=== PATIENT | male | born 1945 | race Caucasian/White ===

== ENCOUNTER → 2021-08-27 09:52 | Outpatient (BNVA) | payer MEDICARE, OTHER, SELFPAY | PROVIDERS: PCP Internal Medicine; Visit Provider Hospitalist | DX: J44.9 Chronic obstructive pulmonary disease, unspecified (principal); R06.00 Dyspnea, unspecified | CPT/HCPCS: 99202 ==

== ENCOUNTER 2021-09-06 09:46 | Outpatient (REF) | payer MEDICARE, OTHER, SELFPAY ==
--- NOTE | 2021-09-06 12:29 | PFT_ITS ---
INDICATION: Dyspnea. SPIROMETRY: The FEV1 to FVC 76% with an FEV1 of 3.29 L, which is 98% predicted and an FVC of 4.36 L, which is 95% predicted. No significant response to bronchodilators noted. Maximum voluntary ventilation 79% predicted. LUNG VOLUMES: Total lung capacity 92% predicted with an expiratory reserve volume of 42% predicted. DIFFUSION CAPACITY: DLCO 66% predicted. COMPARISONS: None. INTERPRETATION: No obstructive nor restrictive ventilatory defects identified. No significant response to bronchodilators noted. There is a slight decrease in maximum voluntary ventilation, which could be secondary to deconditioning. Lung volumes are normal except for decrease in the expiratory reserve volume secondary to an elevated BMI. In addition to that, the patient does have a moderate diffusion impairment, which probably is due to the body habitus, although cannot rule out pulmonary vascular conditions and/or occult interstitial lung conditions. Need also to correct for hemoglobin. Clinical correlation warranted. MD MARCI Crabtree/SARAHY / [phone]
== END 2021-09-06 09:47 | disposition home or self-care (01) ==
LOC: HO.RESP 09:46
PROVIDERS: PCP Internal Medicine; Visit Provider Hospitalist
DX: R06.00 Dyspnea, unspecified (principal); J44.9 Chronic obstructive pulmonary disease, unspecified
CPT/HCPCS: 94060; 94727; 94729

== ENCOUNTER → 2021-10-30 09:58 | Outpatient (BNVA) | payer MEDICARE, OTHER, SELFPAY | PROVIDERS: PCP Internal Medicine; Visit Provider Hospitalist | DX: J44.9 Chronic obstructive pulmonary disease, unspecified (principal); R06.00 Dyspnea, unspecified | CPT/HCPCS: 99212 ==

== ENCOUNTER 2022-07-01 09:21 | Outpatient (REF) | payer MEDICARE, OTHER, SELFPAY ==
--- NOTE | ~2022-07-01 | XR_ITS ---
EXAMINATION: XR CHEST CLINICAL INFORMATION: Shortness of breath. Asthma. COMPARISON: None TECHNIQUE: 2 views of the chest were obtained. FINDINGS: No significant abnormality is noted involving the heart, lungs, mediastinum, bony thorax or soft tissues. Degenerative changes of the spine. XR/XR chest 2V IMPRESSION: No evidence for acute disease in the chest.
== END 2022-07-01 09:22 | disposition home or self-care (01) ==
LOC: HO.LAB 09:21
PROVIDERS: PCP Internal Medicine; Visit Provider Hospitalist
DX: J44.9 Chronic obstructive pulmonary disease, unspecified (principal); R06.00 Dyspnea, unspecified
CPT/HCPCS: 71046; 99212

== ENCOUNTER 2022-12-30 09:17 | Outpatient (REF) | payer MEDICARE, OTHER, SELFPAY ==
--- NOTE | ~2022-12-30 | XR_ITS ---
EXAMINATION: XR CHEST 2 VIEWS CLINICAL INFORMATION: COPD. COMPARISON: Radiographs dated 07/01/2022. TECHNIQUE: Frontal and lateral views of the chest were obtained. FINDINGS: The heart, great vessels, pulmonary vasculature and mediastinum are normal. A stable left pericardial fat pad is redemonstrated. The lungs show no focal infiltrate, effusion or pneumothorax. There is mild elevation of the right hemidiaphragm. There is no acute osseous abnormality. There is multi-level thoracic spondylosis. XR/XR chest 2V IMPRESSION: No active cardiopulmonary disease.
--- NOTE | 2022-12-30 10:15 | ECG_ITS ---
Test Reason : copd Blood Pressure : / mmHG Vent. Rate : 073 BPM Atrial Rate : 073 BPM P-R Int : 196 ms QRS Dur : 098 ms QT Int : 376 ms P-R-T Axes : -05 -58 002 degrees QTc Int : 414 ms Sinus rhythm with Premature atrial complexes Left axis deviation Abnormal ECG No previous ECGs available Referred By: Michael An Electronically Signed By:ALONSO NEGRON
== END 2022-12-30 09:18 | disposition home or self-care (01) ==
LOC: HO.XRAY 09:17
PROVIDERS: PCP Internal Medicine; Visit Provider Hospitalist
DX: J44.9 Chronic obstructive pulmonary disease, unspecified (principal); R06.00 Dyspnea, unspecified
CPT/HCPCS: 71046; 93005; 99212

== ENCOUNTER 2023-01-09 07:45 | Outpatient (REF) | payer MEDICARE, OTHER, SELFPAY ==
--- NOTE | 2023-01-09 16:07 | PFT_ITS ---
FLOWS: 1. FEV1 93% of predicted at 3.04 L. 2. FVC 91% of predicted at 4.13 L. 3. FEV1 to FVC ratio 0.74. 4. No bronchodilator response. LUNG VOLUMES: 1. Total lung capacity 84% of predicted at 6.27 L. 2. Residual volume 81% of predicted at 2.19 L. 3. Slow vital capacity 85% of predicted at 4.08 L. 4. Expiratory reserve volume 32% of predicted at 0.43 L. 5. Diffusion capacity is mildly decreased. Diffusion capacity corrects to normal after adjustment for alveolar ventilation. IMPRESSION: No obstructive or restrictive ventilatory defect. No bronchodilator response. Decreased expiratory reserve volume suggests extrathoracic restriction likely secondary to abdominal obesity. MD NATALIIA Vivas/MODL / [phone]
== END 2023-01-09 07:46 | disposition home or self-care (01) ==
LOC: HO.RESP 07:45
PROVIDERS: PCP Internal Medicine; Visit Provider Hospitalist
DX: J44.9 Chronic obstructive pulmonary disease, unspecified (principal)
CPT/HCPCS: 94060; 94727; 94729

== ENCOUNTER 2023-07-14 09:48 | Outpatient (AMB) | payer MEDICARE, OTHER, SELFPAY ==
--- NOTE | 2023-07-14 10:02 | MHC.OFFVIS ---
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 Moderate severity. Typically sometimes he developed some shortness of breath even at rest. He had been on Symbicort and also Sp[facility] with good response[facility] is no longer available. He was given a sample of Breztri. But, resulted in chest discomfort. Therefore he stopped it. Will back to the [place] he got a prescription of Wixela. However after his reaction to the previous inhaler he opted on waiting the visit to figure if he should started. Patient does describe increasing shortness of breath. Denies any chest pains. Denies any chest congestion. He did go for 6 minutes walk test in the office where he did not demonstrate any desaturation. He denies any chest pains or palpitations during the 6 minutes walk test. The patient will undergo additional testing at this time. 10/30/2021 the patient is here for a pulmonary follow-up visit. Overall the patient has been doing well. He was not able to start the Spiriva because it was no longer covered through the [place]. He has been taking Wixela twice a day. In the meantime the patient did have a chest x-ray done back in June 2021 and I personally reviewed. Appears to have some slight persistent parenchymal disease in the left base. This is minimal. This is unchanged from previous x-rays. The patient did have pulmonary function studies which were personally by me. No evidence of any obstructive nor restrictive ventilatory defects. However, the patient does have a mild diffusion impairment. The patient does try to stay busy. However, his family is concerned about his dyspnea symptoms. I reassured him explaining to him that his lung capacity good. He should continue exercising regularly. Patient also should continue with weight loss as he has been doing. Will plan to follow-up sometime in the fall with repeat chest x-ray. 07/01/2022 the patient is here for a pulmonary follow-up visit. Patient is doing well on his current therapy which includes Wixela and Spiriva. He has a rescue inhaler but does not required often. The patient did have a chest x-ray today which we personally reviewed. He does have a slight elevation of the right hemidiaphragm and some crowding on the right side. Will have him repeat his chest x-ray with the next follow-up in 6 months. In the meantime he continues using the trazodone with good effect at nighttime. He has also continued to use singular. He did recover from COVID 19 about a month ago. He is doing well. No residual symptoms noted. 07/14/2023 the patient is here for pulmonary follow-up visit. The patient continues to do fairly well from a respiratory status. He is responding well to 2 weeks along the Spiriva. In the meantime he did undergo a cardiac evaluation which was reassuring for the patient. He still continues to have the elevation in right hemidiaphragm. He started developing some right-sided right upper quadrant discomfort. Primarily worsened by certain movements. He has been upset because he had been able to chop wood for winter. He did undergo CT scan of the abdomen and pelvis. I did review the area. The lung windows appear to be stable. He has been treated for a musculoskeletal issue at this time. He is trying to stay away from the Western medicines and trying a more holistic approach. Is going to start acupuncture. I did tell about considering turmeric as an anti-inflammatory agent forthright. Otherwise is doing well from a respiratory status will follow-up in a year's time. If he develops any worsening symptoms he will call for a sooner appointment. [facility] Medical History (Updated 07/14/23 @ 10:14 by Michael An MD) Dyspnea COPD (chronic obstructive pulmonary disease) Social History (Updated 08/27/21 @ 10:23 by J CARLOS Barreto) Patient Tobacco Use Status: Never used Tobacco Review of Systems Const Denies night sweats ENT Denies change in voice, Denies lip swelling, Denies mouth pain, Reports nasal congestion, Reports nasal discharge and Denies tongue swelling Card Denies chest pain and Reports dyspnea on exertion Resp Reports cough, Reports dyspnea on exertion and Denies wheezing GI Denies abdominal pain Musc Reports arthralgias Neuro Denies Neuro-related abnormal movements Psych Denies no additional complaints Vern/Lymph Denies easy bleeding and Denies lymphadenopathy Aller/Immun Denies lip swelling, Denies tongue swelling and Denies wheezing Physical Exam Vital Signs: Last Vital Signs Pulse 79 07/14/23 10:03 BP 118/70 07/14/23 10:03 Pulse Ox 97 07/14/23 10:03 Oxygen Delivery Method Room Air 07/14/23 10:03 BMI result Body Mass Index 32.0 Const General: alert Neck Neck: Yes normal visual inspection, Yes full ROM and Yes no lymphadenopathy Chest Chest palpation & inspection: normal inspection of the chest Resp Auscultation: no rales, no rhonchi, no wheezes and diminished lung sounds Cardio Rate: regular rate Rhythm: regular rhythm Heart sounds: S1 normal heart sound present and S2 normal heart sound present GI Palpation (GI): Soft to palpation and nontender Auscultation: normal bowel sounds General: Yes no CVA tenderness Back/Spine/Pelvis Back: no CVA tenderness Skin General skin exam: rashes and/or lesions noted Results Reviewed Results Reviewed: personally reviewed [place] [facility] [place]remarkable [place] windows Assessment & Plan Assessment & Plan (1) COPD (chronic obstructive pulmonary disease): Code(s): J44.9 - Chronic obstructive pulmonary disease, unspecified Qualifiers: COPD type: chronic bronchitis Chronic bronchitis type: simple Qualified Code(s): J41.0 - Simple chronic bronchitis (2) Dyspnea: Code(s): R06.00 - Dyspnea, unspecified Qualifiers: Dyspnea type: dyspnea on exertion Qualified Code(s): R06.09 - Other forms of dyspnea Plan continue Spiriva continue Wixella KRISTI as needed F/U 12 months Coding Level of Care Code Est Pt Level 4 (18715) Diagnoses Simple chronic bronchitis J41.0 COPD type: chronic bronchitis Chronic bronchitis type: simple Dyspnea on exertion R06.09 Dyspnea type: dyspnea on exertion Time Spent (min) 17
[2023-07-14 10:03] VITALS: BP 118/70; PULSE 79; O2SAT 97; BMI 32.0
== END 2023-07-14 10:25 | disposition home or self-care (01) ==
PROVIDERS: PCP Internal Medicine; Visit Provider Hospitalist
DX: J41.0 Simple chronic bronchitis (principal); R06.09 Other forms of dyspnea
CPT/HCPCS: 99214

== ENCOUNTER → 2023-07-14 09:48 | Outpatient (BNVA) | payer MEDICARE, OTHER, SELFPAY | PROVIDERS: Visit Provider Hospitalist | DX: J41.0 Simple chronic bronchitis (principal); R06.09 Other forms of dyspnea | CPT/HCPCS: 99212 ==

== ENCOUNTER 2024-12-07 10:34 | Outpatient (AMB) | payer MEDICARE, SELFPAY ==
[2024-12-07 10:46] VITALS: BP 148/62; PULSE 71; O2SAT 99; BMI 30.6
--- NOTE | 2024-12-07 10:46 | A.OFFVIS_ITS ---
Vital Signs 12/07/24 10:46 Height 6 ft Weight 225 lb 15.581 oz BMI 30.6 BP 148/62 H Blood Pressure Location Rt brachial Position Sitting Pulse 71 Pulse Source Pulse Oximeter Pulse Oximetry (%) 99 Oxygen Delivery Method Room Air Intake Visit Reasons: COPD Allergies No Known Allergies Allergy (Verified 12/07/24 10:51) HPI Comments Details: The patient is a 79-year-old gentleman with a known history of COPD who apparently has been complaining of worsening dyspnea on exertion. Moderate severity. Typically sometimes he developed some shortness of breath even at rest. He had been on Symbicort and also Spiriva with good response. He would get those from the [place]. Unfortunately Symbicort is no longer available. He was given a sample of Breztri. But, resulted in chest discomfort. Therefore he stopped it. [place] back to the [place] he got a prescription of Wixela. However after his reaction to the previous inhaler he opted on waiting the visit to figure if he should started. Patient does describe increasing shortness of breath. Denies any chest pains. Denies any chest congestion. He did go for 6 minutes walk test in the office where he did not demonstrate any desaturation. He denies any chest pains or palpitations during the 6 minutes walk test. The patient will undergo additional testing at this time. 10/30/2021 the patient is here for a pulmonary follow-up visit. Overall the patient has been doing well. He was not able to start the Spiriva because it was no longer covered through the [place]. He has been taking Wixela twice a day. In the meantime the patient did have a chest x-ray done back in June 2021 and I personally reviewed. Appears to have some slight persistent parenchymal disease in the left base. This is minimal. This is unchanged from previous x- rays. The patient did have pulmonary function studies which were personally by me. No evidence of any obstructive nor restrictive ventilatory defects. However, the patient does have a mild diffusion impairment. The patient does try to stay busy. However, his family is concerned about his dyspnea symptoms. I reassured him explaining to him that his lung capacity good. He should continue exercising regularly. Patient also should continue with weight loss as he has been doing. Will plan to follow-up sometime in the fall with repeat chest x-ray. 07/01/2022 the patient is here for a pulmonary follow-up visit. Patient is doing well on his current therapy which includes Wixela and Spiriva. He has a rescue inhaler but does not required often. The patient did have a chest x-ray today which we personally reviewed. He does have a slight elevation of the right hemidiaphragm and some crowding on the right side. Will have him repeat his chest x-ray with the next follow-up in 6 months. In the meantime he continues using the trazodone with good effect at nighttime. He has also continued to use singular. He did recover from COVID 19 about a month ago. He is doing well. No residual symptoms noted. 07/14/2023 the patient is here for pulmonary follow-up visit. The patient continues to do fairly well from a respiratory status. He is responding well to 2 weeks along the Spiriva. In the meantime he did undergo a cardiac evaluation which was reassuring for the patient. He still continues to have the elevation in right hemidiaphragm. He started developing some right-sided right upper quadrant discomfort. Primarily worsened by certain movements. He has been upset because he had been able to chop wood for winter. He did undergo CT scan of the abdomen and pelvis. I did review the area. The lung windows appear to be stable. He has been treated for a musculoskeletal issue at this time. He is trying to stay away from the Western medicines and trying a more holistic approach. Is going to start acupuncture. I did tell about considering turmeric as an anti-inflammatory agent forthright. Otherwise is doing well from a respiratory status will follow-up in a year's time. If he develops any worsening symptoms he will call for a sooner appointment. 12/07/2024 the patient is here for a pulmonary follow-up visit. The patient has been shortness breath. He was short of breath over the fall and did require a course of prednisone. [facility] has not been able to get all the medications. Today she will be receiving his Wixela Spiriva and hopefully also the albuterol for his nebulizer also request from the [place] pharmacy. Meantime he does have some diminished breath sounds no significant wheezing but does have prolonged expiratory phase. We did go for brief walking oximetry his oxygen was excellent. Did have a cardiac workup which is also reassuring including a cardiac stress test prior report of the patient. He was told that he is okay. Again I do not have those reports myself. In the meantime will have him get an x-ray to try to find an explanation for his dyspnea symptoms. If it is abnormal will consider getting a CT scan. Otherwise patient continues to work on his weight loss which is been going well. Will get him optimized with respiratory medications and will plan to have him come back in 3 months PFTs. [facility] Medical History (Updated 07/14/23 @ 10:14 by Michael An MD) Dyspnea COPD (chronic obstructive pulmonary disease) Social History Patient Tobacco Use Status: Never used Tobacco Review of Systems Const Denies night sweats ENT Denies change in voice, Denies lip swelling, Denies mouth pain, Reports nasal congestion, Reports nasal discharge and Denies tongue swelling Card Denies chest pain and Reports dyspnea on exertion Resp Reports cough, Reports dyspnea on exertion and Denies wheezing GI Denies abdominal pain Musc Reports arthralgias Neuro Denies Neuro-related abnormal movements Psych Denies no additional complaints Vern/Lymph Denies easy bleeding and Denies lymphadenopathy Aller/Immun Denies lip swelling, Denies tongue swelling and Denies wheezing Physical Exam Vital Signs: Last Vital Signs Pulse 71 12/07/24 10:46 BP 148/62 H 12/07/24 10:46 Pulse Ox 99 12/07/24 10:46 Oxygen Delivery Method Room Air 12/07/24 10:46 BMI result Body Mass Index 30.6 Const General: alert Neck Neck: Yes normal visual inspection, Yes full ROM and Yes no lymphadenopathy Chest Chest palpation & inspection: normal inspection of the chest Resp Auscultation: no rales, no rhonchi, no wheezes and diminished lung sounds Cardio Rate: regular rate Rhythm: regular rhythm Heart sounds: S1 normal heart sound present and S2 normal heart sound present GI Palpation (GI): Soft to palpation and nontender Auscultation: normal bowel sounds General: Yes no CVA tenderness Back/Spine/Pelvis Back: no CVA tenderness Skin General skin exam: rashes and/or lesions noted Assessment & Plan Assessment & Plan (1) COPD (chronic obstructive pulmonary disease): Code(s): J44.9 - Chronic obstructive pulmonary disease, unspecified Category: Medical Qualifiers: COPD type: chronic bronchitis Chronic bronchitis type: simple Qualified Code(s): J41.0 - Simple chronic bronchitis (2) Dyspnea: Code(s): R06.00 - Dyspnea, unspecified Category: Medical Qualifiers: Dyspnea type: dyspnea on exertion Qualified Code(s): R06.09 - Other forms of dyspnea Plan continue Spiriva continue Wixella KRISTI as needed CXR PFTs prednisone taper Would benefit from pulmonary rehab F/U 3 months Orders: Orders PFT pulmonary function test Today J41.0 - Simple chronic bronchitis XR chest 2V Today R06.09 - Other forms of dyspnea Medications: New albuterol sulfate 2.5 mg (3 mL) inhalation QID 1,080 mL 3RF 90 days prednisone PO daily; Take 2 tabs daily x 5 days, then 1 tablet daily x 5 days 15 tabs 0RF 10 days tiotropium bromide 2.5 mcg/actuation (Spiriva Respimat) 2 puffs inhalation DAILY 3 ea 3RF 90 days Changed From montelukast 10 mg PO DAILY To montelukast 10 mg PO DAILY 90 tabs 3RF 90 days From fluticasone propion-salmeterol 500-50 mcg/dose (Wixela Inhub) 1 inh inhalation BID To fluticasone propion-salmeterol 500-50 mcg/dose (Wixela Inhub) 1 inh inhalation BID 3 ea 3RF 90 days Coding Level of Care Code Est Pt Level 4 (09075) Complex EM visit Add On G2211 Diagnoses Simple chronic bronchitis J41.0 COPD type: chronic bronchitis Chronic bronchitis type: simple Dyspnea on exertion R06.09 Dyspnea type: dyspnea on exertion Time Spent (min) 17
--- OUTSIDE RECORDS SUMMARY | 2024-12-07 12:20 | XMS_ITS | Clinical Summary ---
Author Organization [facility] Address [address] [place] [address] Phone Care Team Providers Care Tobacco Stemmer Machine Name Role Phone Tj Torres MD Primary Care Provider [phone] Allergies No known active allergies Medications omeprazole (PRILOSEC) 20 mg tablet,delayed release (DR/EC) Take 1 tablet (20 mg total) by mouth. 4 Active albuterol HFA (PROAIR HFA ; PROVENTIL HFA ; VENTOLIN HFA) 90 mcg/actuation inhaler Inhale 2 puffs by mouth every 4 (four) hours if needed. Active celecoxib (CeleBREX) 200 mg capsule Take 1 capsule (200 mg total) by mouth. 4 Active montelukast (SINGULAIR) 10 mg tablet Take 1 tablet (10 mg total) by mouth. 4 Active sertraline (ZOLOFT) 100 mg tablet Take 2 tablets (200 mg total) by mouth 1 (one) time each day in the morning. 4 Active simvastatin (ZOCOR) 40 mg tablet Take 1 tablet (40 mg total) by mouth. Active tiotropium (SPIRIVA) 18 mcg per inhalation capsule Place 1 capsule (18 mcg total) into inhaler and inhale. Active traZODone (DESYREL) 100 mg tablet Take 1 tablet (100 mg total) by mouth. 4 Active valsartan (DIOVAN) 80 mg tablet Take 1 tablet (80 mg total) by mouth 1 (one) time each day. 01/23/202 4 Active fluticasone propion-salmete roL (ADVAIR DISKUS) 100-50 mcg/dose diskus inhaler Inhale 1 puff by mouth 2 (two) times a day. Rinse mouth with water after use to reduce aftertaste and incidence of candidiasis. Do not swallow. Active Encounters Date Type Department Care Team Description 09/15/2024 Telephone Gastroenterology - [address] [phone] Jolie Stubbs [place] 09/14/2024 8:35 AM EST Anesthesia Event [facility] Endoscopy [address] [place] [phone] Milan Delgado MD 09/14/2024 7:45 AM EST - 09/14/2024 11:59 PM EST Hospital Encounter [facility] Endoscopy [address] [place] [phone] Yanni Qiu MD Chang, Daniel J, MD Personal history of colon polyps, unspecified; Family history of colonic polyps; Family history of malignant neoplasm of digestive organs Discharge Disposition: Home or Self Care from Last 3 Months Surgical History Surgery Date Site/Laterality Comments BLADDER SURGERY PROCEDURE:BLADDER SURGERY SHOULDER SURGERY PROCEDURE:SHOULDER SURGERY;COMMENT:right and left shoulder KNEE SURGERY PROCEDURE:KNEE SURGERY;COMMENT:right HERNIA REPAIR PROCEDURE:HERNIA REPAIR BASAL CELL CARCINOMA EXCISION Medical History Medical History Date Comments Asthma DX:Asthma COPD (chronic obstructive pu lmonary disease) ([facility]) DX:COPD (chronic obstructive pulmonary disease) ([facility]) Hypertension DX:Hypertension Drug ingestion DX:Drug ingestio n Cancer ([facility]) DX:Cancer ([facility]) ;COMMENT:bladder Depression GERD (gastroesophageal reflux disease) Family History Medical History Relation Name Comments Hypertension Brother Cancer Father Cancer Mother Rheumatologic disease Sister Relation Name Status Comments Brother Father Mother Sister Social History Tobacco Use Types Packs/Day Years Used Date Smoking Tobacco: Never Smokeless Tobacco: Never Tobacco Cessation:Counseling Given: Not Answered Alcohol Use Standard Drinks/Week Comments No 0 (1 standard drink = 0.6 oz pur e alcohol) Interpersonal Safety Answer Date Record ed Physical Abuse 09/14/2024 Verbal Abuse 09/14/2024 Sex and Gender Information Value Date Recorded Sex Assigned at Not on file Legal Sex Male 10:22 PM EST Gender Identity Not on file Sexual Orientation Not on file Obstetrics History Last Filed Vital Signs Vital Sign Reading Time Taken Comments Blood Pressure 114/75 09/14/2024 9:29 AM EST Pulse 83 09/14/2024 9:29 AM EST Temperature 35.6 ??C (96.1 ??F) 09/14/2024 9:06 AM ES T Respiratory Rate 16 09/14/2024 9:29 AM EST Oxygen Saturation 100% 09/14/2024 9:29 AM EST Inhaled Oxygen Concentration - - Weight 102 kg (224 lb) 09/14/2024 8:33 AM EST Height 182.9 cm (6') 09/14/2024 8:33 AM EST Body Mass Index 30.38 09/14/2024 8:33 AM EST Plan of Treatment Health Maintenance Due Date Last Done Comments Hepatitis A Vaccines (1 of 2 - Risk 2-dose series) 1965 Cholesterol Screening (Lipid Panel) 08/10/2024 Depression Screening 08/10/2024 Hepatitis C Screening 08/10/2024 Hypertension/CHF/CAD Annual BMP Blood Test 08/10/2024 Medicare Annual Wellness Visit 08/10/2024 Social Influencers of Health Screening 08/10/2024 Falls Risk Assessment 09/14/2025 09/14/2024 DTaP,Tdap,and Td Vaccines (4 - Td or Tdap) 10/15/2027 10/15/2017, 10/15/2017, 10/12/2007 Zoster Vaccines Completed 07/09/2020, 09/26, 05/17/2012 Pneumococcal Vaccine: 50+ Years Completed 01/12/2023, 10/04/2015, 05/17/2012, Additional history exists COVID-19 Vaccine Completed 07/18/2024, 03/2023, 10/02/2022, Additional history exists Influenza Vaccine Completed 07/18/2024, , 07/09/2022, Additional history exists RSV Immunization Patients 60+ Years Old Completed 09/09/2024 Colorectal Cancer Screening: Colonoscopy Discontinued 09/14/2024 HIB Vaccines Aged Out No longer eligi ble based on patient's age to complete this topic HPV Vaccines Aged Out No longer eligi ble based on patient's age to complete this topic Hepatitis B Vaccines Aged Out No long er eligible based on patient's age to complete this topic IPV Vaccines Aged Out No longer eligi ble based on patient's age to complete this topic MMR Vaccines Aged Out No longer eligi ble based on patient's age to complete this topic Meningococcal ACWY Vaccine Aged Out N o longer eligible based on patient's age to complete this topic RSV Immunization Patients Under 20 months Aged Out No longer eligible based on patient's age to complete this topic Varicella Vaccines Aged Out No longer eligible based on patient's age to complete this topic Procedures Procedure Name Priority Date/Time Associated Diagnosis Comments COLONOSCOPY Routine 09/14/2024 9:05 AM EST Personal history of colon polyps, unspecified Family history of colonic polyps Family history of malignant neoplasm of digestive organs TISSUE EXAM Routine 09/14/2024 8:55 AM EST Personal history of colon polyps, unspecified Family history of colonic polyps Family history of malignant neoplasm of digestive organs from Last 3 Months Results * COLONOSCOPY Anesthesia - MAC; [facility] ENDOSCOPY (09/14/2024 9:05 AM EST) Anatomical Region Laterality Modality Endoscopy 09/14/2024 8:30 AM EST Impressions 09/14/2024 9:07 AM EST - The examined portion of the ileum was normal. ? - One 3 mm polyp in the ascending colon, removed with ? a cold snare. Resected and retrieved. ? - One 2 mm polyp in the transverse colon, removed with ? a cold snare. Resected and retrieved. ? - One 2 mm polyp in the descending colon, removed with ? a cold snare. Resected and retrieved. ? - Diverticulosis in the sigmoid colon. ? - Internal hemorrhoids. Recommendation: ?- Await pathology results. ? - Repeat colonoscopy for surveillance based on ? pathology results. Narrative 09/14/2024 9:07 AM EST [facility] GI Patient Name: Yassine Sharpe Procedure Date: 09/14/2024 8:30 AM Date of : 1945 Age: 78 Gender: Male Note Status: Finalized Attending MD: Yanni Qiu MD, Procedure Date No Time: 09/14/2024 Procedure: ? Colonoscopy Indications: ? High risk colon cancer surveillance: Personal history ? of colonic polyps Providers: ? Yanni Qiu MD Referring MD: ?Tj Torres MD Medicines: ? Propofol per Anesthesia Complications: ? No immediate complications. Estimated Blood Loss: ? Estimated blood loss: none. Procedure: ? Pre-Anesthesia Assessment: ? - ASA Grade Assessment: III - A patient with severe ? systemic disease. ? After I obtained informed consent, the scope was ? passed under direct vision. Throughout the procedure, ? the patient's blood pressure, pulse, and oxygen ? saturations were monitored continuously.The ? Colonoscope was introduced through the anus and ? advanced to the terminal ileum. The colonoscopy was ? performed without difficulty. The patient tolerated ? the procedure well. The quality of the bowel ? preparation was good. Findings: ?The perianal and digital rectal examinations were ? normal. ? The terminal ileum appeared normal. ? A 3 mm polyp was found in the ascending colon. The ? polyp was sessile. The polyp was removed with a cold ? snare. Resection and retrieval were complete. ? A 2 mm polyp was found in the transverse colon. The ? polyp was sessile. The polyp was removed with a cold ? snare. Resection and retrieval were complete. ? A 2 mm polyp was found in the descending colon. The ? polyp was sessile. The polyp was removed with a cold ? snare. Resection and retrieval were complete. ? Multiple medium-mouthed diverticula were found in the ? sigmoid colon. ? Internal hemorrhoids were found during retroflexion. ? The hemorrhoids were Grade I (internal hemorrhoids ? that do not prolapse). Procedure Code(s): ? --- Professional --- ? 29005, Colonoscopy, flexible; with removal of ? tumor(s), polyp(s), or other lesion(s) by snare ? technique Diagnosis Code(s): ? --- Professional --- ? Z86.010, Personal history of colonic polyps ? D12.2, Benign neoplasm of ascending colon ? D12.3, Benign neoplasm of transverse colon (hepatic ? flexure or splenic flexure) ? D12.4, Benign neoplasm of descending colon CPT copyright 2020 [employer]. All rights reserved. The codes documented in this report are preliminary and upon parachute harness rigger review may be revised to meet current compliance requirements. Yanni Qiu MD 09/14/2024 9:07:18 AM This report has been signed electronically.Yanni Qiu MD Number of Addenda: 0 Note Initiated On: 09/14/2024 8:30 AM Scope In: Scope Out: ? Endoscopy Department at [facility] - [address] [place] [address], ? [place] [address] Procedure Note Yanni Qiu MD - 09/14/2024 [facility] GI Patient Name: Yassine Sharpe Procedure Date: 09/14/2024 8:30 AM Date of : 1945 Age: 78 Gender: Male Note Status: Finalized Attending MD: Yanni Qiu MD, Procedure Date No Time: 09/14/2024 Procedure: Colonoscopy Indications: High risk colon cancer surveillance: Personalhistory of colonic polyps Providers: Yanni Qiu MD Referring MD: Tj Torres MD Medicines: Propofol per Anesthesia Complications: No immediate complications. Estimated Blood Loss: Estimated blood loss: none. Procedure: Pre-Anesthesia Assessment: - ASA Grade Assessment: III - A patient with severe systemic disease. After I obtained informed consent, the scope was passed under direct vision. Throughout theprocedure, the patient's blood pressure, pulse, and oxygen saturations were monitored continuously.The Colonoscope was introduced through the anus and advanced to the terminal ileum. The colonoscopy was performed without difficulty. The patient tolerated the procedure well. The quality of the bowel preparation was good. Findings: The perianal and digital rectal examinations were normal. The terminal ileum appeared normal. A 3 mm polyp was found in the ascending colon. The polyp was sessile. The polyp was removed with acold snare. Resection and retrieval were complete. A 2 mm polyp was found in the transverse colon. The polyp was sessile. The polyp was removed with acold snare. Resection and retrieval were complete. A 2 mm polyp was found in the descending colon. The polyp was sessile. The polyp was removed with acold snare. Resection and retrieval were complete. Multiple medium-mouthed diverticula were found inthe sigmoid colon. Internal hemorrhoids were found duringretroflexion. The hemorrhoids were Grade I (internal hemorrhoids that do not prolapse). Procedure Code(s): --- Professional --- 51734, Colonoscopy, flexible; with removal of tumor(s), polyp(s), or other lesion(s) by snare technique Diagnosis Code(s): --- Professional --- Z86.010, Personal history of colonic polyps D12.2, Benign neoplasm of ascending colon D12.3, Benign neoplasm of transverse colon (hepatic flexure or splenic flexure) D12.4, Benign neoplasm of descending colon CPT copyright 2020 [employer]. All rights reserved. The codes documented in this report are preliminary and upon parachute harness rigger reviewmay be revised to meet current compliance requirements. Yanni Qiu MD 09/14/2024 9:07:18 AM This report has been signed electronically.Yanni Qiu MD Number of Addenda: 0 Note Initiated On: 09/14/2024 8:30 AM Scope In: Scope Out: Endoscopy Department at [facility] - [address] [place] [id number] IMPRESSION: - The examined portion of the ileum was normal. - One 3 mm polyp in the ascending colon, removedwith a cold snare. Resected and retrieved. - One 2 mm polyp in the transverse colon, removedwith a cold snare. Resected and retrieved. - One 2 mm polyp in the descending colon, removedwith a cold snare. Resected and retrieved. - Diverticulosis in the sigmoid colon. - Internal hemorrhoids. Recommendation: - Await pathology results. - Repeat colonoscopy for surveillance based on pathology results. Yanni Qiu MD GI~PROCEDURE ORDERABLES Final Result * Tissue exam (09/14/2024 8:55 AM EST) Final Diagnosis A. Large Intestine, Right/Ascending Colon, polyp: - No colonic tissue present for evaluation. B. Large Intestine, Transverse Colon, polyp: - Tubular adenoma. C. Large Intestine, Left/Descending Colon, polyp: - No colonic tissue present for evaluation. 09/15/2024 9:24 AM EST [facility] Gross Description A. Large Intestine, Right/Ascending Colon, POLYP: Labeled asce colon polyp . Received in formalin is a 1.3 x 1.0 x 0.1 cm aggregate of fecal/food debris. The specimen is wrapped in paper and submitted in toto in one cassette, multiple pieces, multiple levels. Please note: No tissue was received in the specimen jar. Specimen may not survive processing. B. Large Intestine, Transverse Colon, POLYP: Labeled trans colon polyp . Received in formalin, are four irregular soft, alexander tissue fragments, approximately ranging from 0 .1 cm to 0.2 cm in greatest diameters, admixed with fecal/food debris, which are wrapped in paper and submitted in toto in one cassette, four pieces, multiple levels. C. Large Intestine, Left/Descending Colon, POLYP: Labeled desc colon polyp . Received in formalin is a 0.2 cm aggregate of fecal/food debris. The specimen is wrapped in paper and submitted in toto in one cassette, multiple pieces, multiple levels. Please note: No tissue was received in the specimen jar. Specimen may not survive processing. dvb/SL 09/15/2024 9:24 AM EST [facility] Disclaimer Unless otherwise specified, all tissue is 10% NB formalin fixed and paraffin embedded. 09/15/2024 9:24 AM EST [facility] Tissue Ascending colon structure / Unknown 09/14/2024 8:55 AM EST 09/14/2024 10:55 AM EST Tissue specimen (specimen) Transverse colon structure / Unknown 09/14/2024 8:57 AM EST 09/14/2024 10:56 AM EST Tissue specimen (specimen) Descending colon structure / Unknown 09/14/2024 9:01 AM EST 09/14/2024 10:56 AM EST us Yanni Qiu MD LAB PATHOLOGY ORDERABLES Final Result [facility] [address] [place] [address], [place] [phone] from Last 3 Months Insurance MEDICARE [facility] Care Teams Tobacco Stemmer Machine Relationship Specialty Start Date End Date Tj Torres MD [address] [place] [address] PCP - General Internal Medicine 09/12/24
--- OUTSIDE RECORDS SUMMARY | 2024-12-07 12:20 | XMS_ITS | Clinical Summary ---
Author Organization [facility] Address [address] [place] [address] Care Team Providers Care Bookkeeper Name Role Phone Sathya Herzog MD Primary Care Provider [phone] Allergies No known active allergies Medications Medication Sig Dispensed Refills Start Date End Date Status albuterol (PROVENTIL HFA;VENTOLIN HFA) 108 (90 Base) MCG/ACT inhaler Inhale 2 puffs into the lungs. 0 Active aspirin 81 MG EC tablet Take by mouth. 0 Active budesonide-formoterol (SYMBICORT) 160-4.5 MCG/ACT inhaler Inhale 2 puffs into the lungs. 0 Active ipratropium-albuterol (DUO-NEB) 0.5-2.5 mg/mL nebulizer Inhale 3 mL into the lungs. 0 Active montelukast (SINGULAIR) 10 MG tablet Take 10 mg by mouth. 0 Active sertraline (ZOLOFT) 100 MG tablet Take 100 mg by mouth. 0 Active tiotropium (SPIRIVA) [address] 18 mcg into inhaler and inhale. 0 Active valsartan (DIOVAN) tablet 80 mg Take 80 mg by mouth. 0 Active simvastatin (ZOCOR) tablet 40 mg Take 40 mg by mouth. 0 Active traZODone (DESYREL) 100 MG tablet Take 100 mg by mouth every night at bedtime. 0 Active meloxicam (MOBIC) 7.5 MG tablet TAKE 1 TABLET(7.5 MG) BY MOUTH DAILY 30 tablet 0 01/19/2020 Active Active Problems Problem Noted Date Diagnosed Date Chronic pain of left knee 03/11/2018 Arthritis of knee, right 03/11/2018 Family History Medical History Relation Name Comments Hypertension Brother Cancer Father Cancer Mother Rheumatologic disease Sister Relation Name Status Comments Brother Father Mother Sister Social History Tobacco Use Types Packs/Day Years Used Date Smoking Tobacco: Former Cigars Q uit: 1970 Smokeless Tobacco: Never Alcohol Use Standard Drinks/Week Comments No 0 (1 standard drink = 0.6 oz pur e alcohol) Sex and Gender Information Value Date Recorded Sex Assigned at Not on file Gender Identity Not on file Sexual Orientation Not on file Last Filed Vital Signs Vital Sign Reading Time Taken Comments Blood Pressure - - Pulse - - Temperature - - Respiratory Rate - - Oxygen Saturation - - Inhaled Oxygen Concentration - - Weight 107 kg (236 lb) 01/17/2020 1:29 PM EDT Height 182.9 cm (6') 01/17/2020 1:29 PM EDT Body Mass Index 32.01 01/17/2020 1:29 PM EDT Plan of Treatment Health Maintenance Due Date Last Done Comments Hepatitis C Screening 1945 COVID-19 Vaccine (#1) 04/06/1946 Depression Screening 1958 BMI Counseling 1964 Preventative Health Evaluation 1964 DTap / Tdap / Td (1 - Tdap) 1965 Shingrix-Zoster Vaccine (1 of 2) 1996 Fall Risk Assessment 2011 Pneumococcal Vaccine (1 of 1 - PCV) 2011 RSV Adult > 60+ Yrs or Pregn ant (1 - 1-dose 75+ series) 2021 Influenza Vaccine (#1) 2024 09/23/2018 Hepatitis B Vaccines Aged Out No long er eligible based on patient's age to complete this topic RSV Ped < 20 months Aged Out No longe r eligible based on patient's age to complete this topic Care Teams Bookkeeper Relationship Specialty Start Date End Date Sathya Herzog MD [address] [address] PCP - General Internal Medicine 11/29/19
== END 2024-12-07 11:15 | disposition home or self-care (01) ==
PROVIDERS: PCP Internal Medicine; Visit Provider Hospitalist
DX: J41.0 Simple chronic bronchitis (principal); R06.09 Other forms of dyspnea
CPT/HCPCS: 99214; G2211

== ENCOUNTER 2024-12-07 10:34 | Outpatient (REF) | payer MEDICARE, OTHER, SELFPAY ==
--- NOTE | ~2024-12-07 | XR_ITS ---
EXAMINATION: XR CHEST CLINICAL INFORMATION: R06.09 - Other forms of dyspnea COMPARISON: 12/30/2022. TECHNIQUE: 2 views of the chest were obtained. FINDINGS: The cardiac, hilar, and mediastinal contours are normal. The lungs are clear bilaterally. There is no pneumothorax or pleural effusion. There is no focal osseous or soft tissue abnormality. There are mild degenerative changes of the spine. XR/XR chest 2V IMPRESSION: No active pulmonary disease. Electronically signed by: Ronal Mello MD 12/07/2024 12:34 PM [facility]
--- OUTSIDE RECORDS SUMMARY | 2024-12-07 13:16 | XMS_ITS | Clinical Summary ---
Author Organization [facility] Address [address] [place] [address] Care Team Providers Care Library Media Specialist Name Role Phone Sathya Herzog MD Primary Care Provider [phone] Allergies No known active allergies Medications Medication [...] age to complete this topic Care Teams Library Media Specialist Relationship Specialty Start Date End Date Sathya Herzog MD [address] [address] PCP - General Internal Medicine 11/29/19
--- OUTSIDE RECORDS SUMMARY | 2024-12-07 13:16 | XMS_ITS | Clinical Summary ---
Author Organization [facility] Address [address] [place] [address] Phone Care Team Providers Care Carpet Loom Fixer Name Role Phone Tj Torres MD Primary Care Provider [phone] Allergies No known active allergies Medications omeprazole [...] 09/15/2024 Telephone Gastroenterology - [address] [phone] Jolie Stubbs [place] 09/14/2024 8:35 AM EST Anesthesia Event [facility] Endoscopy [address] [place] [phone] Milan Delgado MD 09/14/2024 7:45 AM EST - 09/14/2024 11:59 PM EST Hospital Encounter [facility] Endoscopy [address] [place] [phone] Yanni Qiu MD Chang, Daniel J, MD [...] DX:Asthma COPD (chronic obstructive pu lmonary disease) ([facility]) DX:COPD (chronic obstructive pulmonary disease) ([facility]) Hypertension DX:Hypertension Drug ingestion DX:Drug ingestio n Cancer ([facility]) DX:Cancer ([facility]) ;COMMENT:bladder Depression GERD (gastroesophageal reflux disease) Family [...] patient's age to complete this topic Meningococcal B Vacine Aged Out No lo nger eligible based on patient's age to complete [...] Months Results * COLONOSCOPY Anesthesia - MAC; [facility] ENDOSCOPY (09/14/2024 9:05 AM EST) Anatomical Region [...] pathology results. Narrative 09/14/2024 9:07 AM EST [facility] GI Patient Name: Yassine Sharpe Procedure [...] Procedure Code(s): ? --- Professional --- ? 00360, Colonoscopy, flexible; with removal of ? tumor(s), polyp(s), or other lesion(s) by snare ? technique Diagnosis Code(s): ? --- Professional --- ? Z86.010, Personal history of colonic polyps ? D12.2, Benign neoplasm of ascending colon ? D12.3, Benign neoplasm of transverse colon (hepatic ? flexure or splenic flexure) ? D12.4, Benign neoplasm of descending colon CPT copyright 2020 [employer]. All rights reserved. The codes documented in this report are preliminary and upon physicians and surgeons review may be revised to meet current compliance requirements. Yanni Qiu MD 09/14/2024 9:07:18 AM This report has been signed electronically.Yanni Qiu MD Number of Addenda: 0 Note Initiated On: 09/14/2024 8:30 AM Scope In: Scope Out: ? Endoscopy Department at [facility] - [address] [place] [address], ? [place] [address] Procedure Note Yanni Qiu MD - 09/14/2024 [facility] GI Patient Name: Yassine Sharpe Procedure [...] not prolapse). Procedure Code(s): --- Professional --- 42832, Colonoscopy, flexible; with removal of tumor(s), polyp(s), or other lesion(s) by snare technique Diagnosis Code(s): --- Professional --- Z86.010, Personal history of colonic polyps D12.2, Benign neoplasm of ascending colon D12.3, Benign neoplasm of transverse colon (hepatic flexure or splenic flexure) D12.4, Benign neoplasm of descending colon CPT copyright 2020 [employer]. All rights reserved. The codes documented in this report are preliminary and upon physicians and surgeons reviewmay be revised to meet current compliance requirements. Yanni Qiu MD 09/14/2024 9:07:18 AM This report has been signed electronically.Yanni Qiu MD Number of Addenda: 0 Note Initiated On: 09/14/2024 8:30 AM Scope In: Scope Out: Endoscopy Department at [address] [address] IMPRESSION: - The examined portion of the [...] tissue present for evaluation. 09/15/2024 9:24 AM [facility] Gross Description A. [...] not survive processing. dvb/SL 09/15/2024 9:24 AM [facility] Disclaimer Unless otherwise specified, all tissue is 10% NB formalin fixed and paraffin embedded. 09/15/2024 9:24 AM [facility] Tissue Ascending colon structure / Unknown 09/14/2024 8:55 AM EST 09/14/2024 10:55 AM EST Tissue specimen (specimen) Transverse colon structure / Unknown 09/14/2024 8:57 AM EST 09/14/2024 10:56 AM EST Tissue specimen (specimen) Descending colon structure / Unknown 09/14/2024 9:01 AM EST 09/14/2024 10:56 AM EST Yanni Qiu MD LAB PATHOLOGY ORDERABLES Final Result [facility] [address] [place] [address], from Last 3 Months Insurance MEDICARE [facility] Care Teams Carpet Loom Fixer Relationship Specialty Start Date End Date Tj Torres MD [place] [address] PCP - General Internal Medicine 09/12/24
== END 2024-12-07 10:35 | disposition home or self-care (01) ==
LOC: HO.XRAY 10:34
PROVIDERS: PCP Internal Medicine; Visit Provider Hospitalist
DX: J41.0 Simple chronic bronchitis (principal); R06.09 Other forms of dyspnea
CPT/HCPCS: 71046; 99212

== ENCOUNTER → 2024-12-07 11:24 | Outpatient (BNV) | payer MEDICARE, SELFPAY | PROVIDERS: PCP Internal Medicine; Visit Provider Radiology Diagnostic Radiology | DX: R06.09 Other forms of dyspnea (principal) | CPT/HCPCS: 71046 ==

== ENCOUNTER 2025-01-12 07:47 | Outpatient (REF) | payer MEDICARE, OTHER, SELFPAY ==
--- NOTE | 2025-01-12 07:50 | PFT_ITS ---
Flows: FEV1: 108 % of predicted at 3.26 L FVC: 111 % of predicted at 4.54 L FEV1/FVC: 72 % Bronchodilator response: Present in small to medium airways only Volumes: Total lung capacity: 94 % of predicted at 6.88 L Residual volume: 80 % of predicted at 2.29 L Slow vital capacity: 108 % of predicted at 4.59 L Expiratory reserve volume: 62 % of predicted at 0.80 L Diffusion capacity: No Impression: Mild reversible obstructive ventilatory defect with bronchodilator response present in small to medium airways only. MTDD
--- OUTSIDE RECORDS SUMMARY | 2025-01-12 07:50 | XMS_ITS | Clinical Summary ---
Author Organization [facility] Address [address] [place] [address] Care Team Providers Care Floor Worker Well Service Name Role Phone Sathya Herzog MD Primary Care Provider [phone] Allergies No known active allergies Medications Medication [...] age to complete this topic Care Teams Floor Worker Well Service Relationship Specialty Start Date End Date Sathya Herzog MD [address] [address] PCP - General Internal Medicine 11/29/19
--- OUTSIDE RECORDS SUMMARY | 2025-01-12 07:50 | XMS_ITS | Clinical Summary ---
Author Organization [facility] Address [address] [place] [address] Phone Care Team Providers Care Banquet Kitchen Supervisor Name Role Phone Tj Torres MD Primary Care Provider [phone] Allergies No known active allergies Medications omeprazole [...] incidence of candidiasis. Do not swallow. Active Surgical History Surgery Date Site/Laterality Comments BLADDER SURGERY PROCEDURE:BLADDER SURGERY SHOULDER SURGERY PROCEDURE:SHOULDER SURGERY;COMMENT:right and left shoulder KNEE SURGERY PROCEDURE:KNEE SURGERY;COMMENT:right HERNIA REPAIR PROCEDURE:HERNIA REPAIR BASAL CELL CARCINOMA EXCISION Medical History Medical History Date Comments Asthma DX:Asthma COPD (chronic obstructive pu lmonary disease) ([facility]) DX:COPD (chronic obstructive pulmonary disease) ([facility]) Hypertension DX:Hypertension Drug ingestion DX:Drug ingestio n Cancer ([facility]) DX:Cancer ([facility]) ;COMMENT:bladder Depression GERD (gastroesophageal reflux disease) Family [...] of digestive organs from Last 3 Months or Most Recently Relevant to Health Maintenance Results * COLONOSCOPY Anesthesia - MAC; [facility] ENDOSCOPY (09/14/2024 9:05 AM EST) Anatomical [...] pathology results. Narrative 09/14/2024 9:07 AM EST [facility] GI Patient Name: Yassine Sharpe Procedure Date: [...] Procedure Code(s): ? --- Professional --- ? 22163, Colonoscopy, flexible; with removal of ? tumor(s), polyp(s), or other lesion(s) by snare ? technique Diagnosis Code(s): ? --- Professional --- ? Z86.010, Personal history of colonic polyps ? D12.2, Benign neoplasm of ascending colon ? D12.3, Benign neoplasm of transverse colon (hepatic ? flexure or splenic flexure) ? D12.4, Benign neoplasm of descending colon CPT copyright 2020 [employer]. All rights reserved. The codes documented in this report are preliminary and upon six color press operator review may be revised to meet current compliance requirements. Yanni Qiu MD 09/14/2024 9:07:18 AM This report has been signed electronically.Yanni Qiu MD Number of Addenda: 0 Note Initiated On: 09/14/2024 8:30 AM Scope In: Scope Out: ? Endoscopy Department at [facility] - [address] [place] [address], ? [place] [address] Procedure Note Yanni Qiu MD - 09/14/2024 [facility] GI Patient Name: Yassine Sharpe Procedure Date: [...] not prolapse). Procedure Code(s): --- Professional --- 34707, Colonoscopy, flexible; with removal of tumor(s), polyp(s), or other lesion(s) by snare technique Diagnosis Code(s): --- Professional --- Z86.010, Personal history of colonic polyps D12.2, Benign neoplasm of ascending colon D12.3, Benign neoplasm of transverse colon (hepatic flexure or splenic flexure) D12.4, Benign neoplasm of descending colon CPT copyright 2020 [employer]. All rights reserved. The codes documented in this report are preliminary and upon six color press operator reviewmay be revised to meet current compliance requirements. Yanni Qiu MD 09/14/2024 9:07:18 AM This report has been signed electronically.Yanni Qiu MD Number of Addenda: 0 Note Initiated On: 09/14/2024 8:30 AM Scope In: Scope Out: Endoscopy Department at [facility] - [address] [place] [id number] IMPRESSION: - The examined portion of the [...] Yanni Qiu MD GI~PROCEDURE ORDERABLES Final Result from Last 3 Months or Most Recently Relevant to Health Maintenance Insurance MEDICARE [facility] Care Teams Banquet Kitchen Supervisor Relationship Specialty Start Date End Date Tj Torres MD [address] [place] PCP - General Internal Medicine 09/12/24
[2025-01-12 08:40] VITALS: PULSE 75; O2SAT 99
== END 2025-01-12 07:48 | disposition home or self-care (01) ==
LOC: HO.RESP 07:47
PROVIDERS: PCP Internal Medicine; Visit Provider Hospitalist
DX: J41.0 Simple chronic bronchitis (principal)
CPT/HCPCS: 94010; 94640; 94727; 94729

== ENCOUNTER → 2025-01-12 07:50 | Outpatient (BNV) | payer MEDICARE, OTHER, SELFPAY | PROVIDERS: PCP Internal Medicine; Visit Provider Internal Medicine Pulmonary Disease | DX: J44.9 Chronic obstructive pulmonary disease, unspecified (principal) | CPT/HCPCS: 94060; 94727; 94729 ==

== ENCOUNTER 2025-03-08 09:50 | Outpatient (AMB) | payer MEDICARE, OTHER, SELFPAY ==
[2025-03-08 09:56] VITALS: BP 124/56; PULSE 76; O2SAT 99; BMI 30.2
--- NOTE | 2025-03-08 09:56 | MHC.OFFVIS ---
Vital Signs 03/08/25 09:56 Height 6 ft Weight 222 lb 10.67 oz BMI 30.2 BP 124/56 L Blood Pressure Location Lt brachial Position Sitting Pulse 76 Pulse Source Pulse Oximeter Pulse Oximetry (%) 99 Oxygen Delivery Method Room Air Intake Visit Reasons: COPD Electronics Design Engineer Required: No Allergies No Known Allergies Allergy (Verified 03/08/25 09:59) HPI Comments Details: The patient is a 79-year-old gentleman with a known history of COPD who apparently has been complaining of worsening dyspnea on exertion. Moderate severity. Typically sometimes he developed some shortness of breath even at rest. He had been on Symbicort and also Spiriva with good response. [facility] is no longer available. He was given a sample of Breztri. But, resulted in chest discomfort. Therefore he stopped it. Will back to the [place] he got a prescription of Wixela. However after his reaction to the previous inhaler he opted on waiting the visit to figure if he should started. Patient does describe increasing shortness of breath. Denies any chest pains. Denies any chest congestion. He did go for 6 minutes walk test in the office where he did not demonstrate any desaturation. He denies any chest pains or palpitations during the 6 minutes walk test. The patient will undergo additional testing at this time. 10/30/2021 the patient is here for a pulmonary follow-up visit. Overall the patient has been doing well. He was not able to start the Spiriva because [facility] no [facility]. He has been taking Wixela twice a day. In the meantime the patient did have a chest x-ray done back in June 2021 and I personally reviewed. Appears to have some slight persistent parenchymal disease in the left base. This is minimal. This is unchanged from previous x-rays. The patient did have pulmonary function studies which were personally by me. No evidence of any obstructive nor restrictive ventilatory defects. However, the patient does have a mild diffusion impairment. The patient does try to stay busy. However, his family is concerned about his dyspnea symptoms. I reassured him explaining to him that his lung capacity good. He should continue exercising regularly. Patient also should continue with weight loss as he has been doing. Will plan to follow-up sometime in the fall with repeat chest x-ray. 07/01/2022 the patient is here for a pulmonary follow-up visit. Patient is doing well on his current therapy which includes Wixela and Spiriva. He has a rescue inhaler but does not required often. The patient did have a chest x-ray today which we personally reviewed. He does have a slight elevation of the right hemidiaphragm and some crowding on the right side. Will have him repeat his chest x-ray with the next follow-up in 6 months. In the meantime he continues using the trazodone with good effect at nighttime. He has also continued to use singular. He did recover from COVID 19 about a month ago. He is doing well. No residual symptoms noted. 07/14/2023 the patient is here for pulmonary follow-up visit. The patient continues to do fairly well from a respiratory status. He is responding well to 2 weeks along the Spiriva. In the meantime he did undergo a cardiac evaluation which was reassuring for the patient. He still continues to have the elevation in right hemidiaphragm. He started developing some right-sided right upper quadrant discomfort. Primarily worsened by certain movements. He has been upset because he had been able to chop wood for winter. He did undergo CT scan of the abdomen and pelvis. I did review the area. The lung windows appear to be stable. He has been treated for a musculoskeletal issue at this time. He is trying to stay away from the Western medicines and trying a more holistic approach. Is going to start acupuncture. I did tell about considering turmeric as an anti-inflammatory agent forthright. Otherwise is doing well from a respiratory status will follow-up in a year's time. If he develops any worsening symptoms he will call for a sooner appointment. 12/07/2024 the patient is here for a pulmonary follow-up visit. The patient has been shortness breath. He was short of breath over the fall and did require a course of prednisone. [facility] Lately has not been able to get all the medications. Today she will be receiving his Wixela Spiriva and hopefully also the albuterol for his nebulizer also request from the [place] pharmacy. Meantime he does have some diminished breath sounds no significant wheezing but does have prolonged expiratory phase. We did go for brief walking oximetry his oxygen was excellent. Did have a cardiac workup which is also reassuring including a cardiac stress test prior report of the patient. He was told that he is okay. Again I do not have those reports myself. In the meantime will have him get an x-ray to try to find an explanation for his dyspnea symptoms. If it is abnormal will consider getting a CT scan. Otherwise patient continues to work on his weight loss which is been going well. Will get him optimized with respiratory medications and will plan to have him come back in 3 months PFTs. 03/08/2025 the patient is here for a pulmonary follow-up visit. Overall the patient complains about shortness of breath. Even with minimal activity he feels very winded. Specially when going up a flight of stairs. His oxygens always perfect. He has respiratory medications include Wixela and Spiriva. It may be that he is not adequately administering the medications. He does better with the nebulizer. Will go ahead and start him on budesonide and he can use it along with the DuoNeb. I did write him on some instructions on how to do it appropriately. If he feels better he can always wean off the Wixela. But, he did undergo pulmonary function studies and he did have a reversible obstruction although partially reversible. In addition, he did have a chest x-ray which I personally reviewed demonstrating no acute disease. So I do believe that he does need additional bronchodilator therapy. Still though it is out of proportion to the degree of shortness of breath that he has. Will be reasonable to have a cardiac workup. Will go ahead and request a repeat EKG specially since he had a sinus arrhythmia during the last 1 and a left bundle branch block. Will also request an echocardiogram and also referral to Cardiology so we can see about getting a stress test or a CT angio of the coronary arteries. For now will maximize his. He will follow-up with cardiology and will follow-up with him in about 3-4 months. [facility] Medical History (Updated 03/08/25 @ 23:36 by Michael An MD) Tachyarrhythmia Asthma Dyspnea COPD (chronic obstructive pulmonary disease) Social History Patient Tobacco Use Status: Never used Tobacco Review of Systems Const Denies chills, Denies fatigue, Denies fever(s), Denies weight gain and Denies weight loss ENT Denies dizziness, Denies lip swelling and Denies tongue swelling Card Denies chest pain, Denies leg edema, Denies lightheadedness, Denies palpitations, Reports dyspnea on exertion, Denies orthopnea and Denies other Resp Reports cough, Reports dyspnea on exertion and Reports wheezing GI Denies hematochezia and Denies change in stool character Musc Denies abnormal gait, Denies muscle weakness, Denies numbness, Denies radiating pain into limb and Denies tingling Neuro Denies abnormal gait, Denies dizziness, Denies numbness and Denies tingling Psych Denies no additional complaints Endo Denies fatigue and Denies palpitations Vern/Lymph Denies easy bleeding and Denies lymphadenopathy Aller/Immun Denies lip swelling, Denies tongue swelling and Reports wheezing Physical Exam Vital Signs: Last Vital Signs Pulse 76 03/08/25 09:56 BP 124/56 L 03/08/25 09:56 Pulse Ox 99 03/08/25 09:56 Oxygen Delivery Method Room Air 03/08/25 09:56 BMI result Body Mass Index 30.2 Const General: alert Neck Neck: Yes normal visual inspection, Yes full ROM and Yes no lymphadenopathy Chest Chest palpation & inspection: normal inspection of the chest Resp Effort & Inspection: normal respiratory effort Auscultation: no rales, no rhonchi, wheezes and diminished lung sounds Cardio Rate: regular rate Rhythm: regular rhythm Heart sounds: S1 normal heart sound present and S2 normal heart sound present GI Palpation (GI): Soft to palpation and nontender Auscultation: normal bowel sounds General: Yes no CVA tenderness Back/Spine/Pelvis Back: no CVA tenderness Skin General skin exam: rashes and/or lesions noted Assessment & Plan Assessment & Plan (1) COPD (chronic obstructive pulmonary disease): Code(s): J44.9 - Chronic obstructive pulmonary disease, unspecified Category: Medical Qualifiers: COPD type: chronic bronchitis Chronic bronchitis type: simple Qualified Code(s): J41.0 - Simple chronic bronchitis (2) Dyspnea: Code(s): R06.00 - Dyspnea, unspecified Category: Medical Qualifiers: Dyspnea type: dyspnea on exertion Qualified Code(s): R06.09 - Other forms of dyspnea (3) Asthma: Code(s): J45.909 - Unspecified asthma, uncomplicated Category: Medical Qualifiers: Asthma severity: moderate Asthma persistence: persistent Asthma complication type: uncomplicated Qualified Code(s): J45.40 - Moderate persistent asthma, uncomplicated (4) Tachyarrhythmia: Code(s): R00.0 - Tachycardia, unspecified Category: Medical Plan continue Spiriva continue Wixella KRISTI as needed continue Duonebs Add Budesonide Bloodwork ECHO/EKG Cardiology referral Would benefit from pulmonary rehab F/U 3-4 months Orders: Orders B Type Natriuretic Peptide Today J45.909 - Unspecified asthma, uncomplicated, R00.0 - Tachycardia, unspecified, R06.09 - Other forms of dyspnea Complete Blood Count Auto Diff Today J45.909 - Unspecified asthma, uncomplicated, R00.0 - Tachycardia, unspecified, R06.09 - Other forms of dyspnea CA echo transthoracic complete Today I27.20 - Pulmonary hypertension, unspecified, J45.909 - Unspecified asthma, uncomplicated, R00.0 - Tachycardia, unspecified, R06.09 - Other forms of dyspnea ECG 12 lead EKG Today J44.9 - Chronic obstructive pulmonary disease, unspecified, J45.909 - Unspecified asthma, uncomplicated, R00.0 - Tachycardia, unspecified, R06.09 - Other forms of dyspnea Erythrocyte Sedimentation Rate Today J45.909 - Unspecified asthma, uncomplicated, R00.0 - Tachycardia, unspecified, R06.09 - Other forms of dyspnea Immunoglobulin E Today J45.909 - Unspecified asthma, uncomplicated, R00.0 - Tachycardia, unspecified, R06.09 - Other forms of dyspnea Venous Blood Gas Today J45.909 - Unspecified asthma, uncomplicated, R00.0 - Tachycardia, unspecified, R06.09 - Other forms of dyspnea Referrals Cardiology Referral R00.0 - Tachycardia, unspecified, R06.09 - Other forms of dyspnea Medications: New budesonide 0.5 mg (2 mL) inhalation BID 120 mL 11RF 30 days J44.9 - Chronic obstructive pulmonary disease, unspecified Coding Level of Care Code Est Pt Level 4 (38604) Complex EM visit Add On G2211 Diagnoses Simple chronic bronchitis J41.0 COPD type: chronic bronchitis Chronic bronchitis type: simple Dyspnea on exertion R06.09 Dyspnea type: dyspnea on exertion Moderate persistent asthma without complication J45.40 Asthma severity: moderate Asthma persistence: persistent Asthma complication type: uncomplicated Tachyarrhythmia R00.0 Time Spent (min) 17
--- OUTSIDE RECORDS SUMMARY | 2025-03-08 10:36 | XMS_ITS | Clinical Summary ---
Author Organization [facility] Address [address] [place] [address] Care Team Providers Care Director Of Tax Services Name Role Phone Sathya Herzog MD Primary Care Provider Allergies No known active allergies Medications Medication [...] age to complete this topic Care Teams Director Of Tax Services Relationship Specialty Start Date End Date Sathya Herzog MD [address] [address] PCP - General Internal Medicine 11/29/19
--- OUTSIDE RECORDS SUMMARY | 2025-03-08 10:36 | XMS_ITS | Encounter Summary ---
Author Organization [facility] Address [address] [place] [address] Care Team Providers Care Pipe Organ Mechanic Apprentice Name Role Phone Aleksandar Easley MD Primary Care Provider Christie coronel Encounter Details Date Type Department Care Team Description 02/23/2018 Transfer Records Medical Records [address] [place] [address] Abstract, Provider Social History Tobacco Use Types Packs/Day Years Used Date Smoking Tobacco: Never Smokeless Tobacco: Never Sex Assigned at Date Recorded Not on file documented as of this encounter Plan of Treatment Not on file documented as of this encounter Visit Diagnoses Not on filedocumented in this encounter Care Teams Pipe Organ Mechanic Apprentice Relationship Specialty Start Date End Date Aleksandar Easley MD PCP - General Cardiovascular Disease 02/15/18 documented as of this encounter
--- OUTSIDE RECORDS SUMMARY | 2025-03-08 10:36 | XMS_ITS | Encounter Summary ---
Author Organization [facility] Address [address] [place] [address] Care Team Providers Care Wood Heel Flap Trimmer Name Role Phone Aleksandar Easley MD Primary Care Provider Christie coronel Encounter Details Date Type Department Care Team Description 02/17/2018 Release of Information Medical Records [address] [place] [id number] Abstract, Provider Social History Tobacco Use Types Packs/Day Years Used Date Smoking Tobacco: Never Smokeless Tobacco: Never Sex Assigned at Date Recorded Not on file documented as of this encounter Plan of Treatment Not on file documented as of this encounter Visit Diagnoses Not on filedocumented in this encounter Care Teams Wood Heel Flap Trimmer Relationship Specialty Start Date End Date Aleksandar Easley MD PCP - General Cardiovascular Disease 02/15/18 documented as of this encounter
--- OUTSIDE RECORDS SUMMARY | 2025-03-08 10:36 | XMS_ITS | Clinical Summary ---
Author Organization [facility] Address [address] [place] [address] Phone Care Team Providers Care Composition Tile Layer Name Role Phone Tj Torres MD Primary Care Provider [phone] Allergies No known active allergies Medications omeprazole [...] DX:Asthma COPD (chronic obstructive pu lmonary disease) ([facility]24, [facility]) DX:COPD (chronic o bstructive pulmonary disease) ([facility]) Hypertension DX:Hypertension Drug ingestion DX:Drug ingestio n Cancer ([facility], [facility] V28) DX:Cancer ([facility]);COMMENT:bladder Depression GERD (gastroesophageal reflux disease) Family History [...] 08/10/2024 Social Influencers of Health Screening 08/10/2024 COVID-19 Vaccine ( season) 2025 07/18/2024, 07/31/2023, 10/02/2022, Additional history exists Falls Risk Assessment 09/14/2025 09/14/2024 DTaP,Tdap,and Td Vaccines (4 - Td or Tdap) 10/15/2027 10/15/2017, 10/15/2017, 10/12/2007 Zoster Vaccines Completed 07/09/2020, 09/26, 05/17/2012 Pneumococcal Vaccine: 50+ Years Completed 01/12/2023, 10/04/2015, 05/17/2012, Additional history exists Influenza Vaccine Completed 07/18/2024, , 07/09/2022, Additional history exists RSV Immunization Adult Patients Completed 09/09/2024 Colorectal Cancer Screening: Colonoscopy Discontinued [...] age to complete this topic Meningococcal B Vaccine Aged Out No l onger eligible based on patient's age to complete [...] Health Maintenance Results * COLONOSCOPY [facility]est[facility] [place] [facility] (09/14/2024 9:05 AM EST) [...] results. Narrative 09/14/2024 9:07 AM EST [facility] GI Patient Name: Yassine Colindres Procedure Date: 09/14/2024 8:30 AM Date of [...] Procedure Code(s): ? --- Professional --- ? 74161, Colonoscopy, flexible; with removal of ? tumor(s), polyp(s), or other lesion(s) by snare ? technique Diagnosis Code(s): ? --- Professional --- ? Z86.010, Personal history of colonic polyps ? D12.2, Benign neoplasm of ascending colon ? D12.3, Benign neoplasm of transverse colon (hepatic ? flexure or splenic flexure) ? D12.4, Benign neoplasm of descending colon CPT copyright 2020 [employer]. All rights reserved. The codes documented in this report are preliminary and upon casting carrier review may be revised to meet current compliance requirements. Yanni Qiu MD 09/14/2024 9:07:18 AM This report has been signed electronically.Yanni Qiu MD Number of Addenda: 0 Note Initiated On: 09/14/2024 8:30 AM Scope In: Scope Out: ? Endoscopy Department at [facility] - [address] [place] [address], ? [place] [address] Procedure Note Yanni Qiu MD - 09/14/2024 [facility] GI Patient Name: Yassine Colindres Procedure Date: 09/14/2024 8:30 AM Date of [...] not prolapse). Procedure Code(s): --- Professional --- 77834, Colonoscopy, flexible; with removal of tumor(s), polyp(s), or other lesion(s) by snare technique Diagnosis Code(s): --- Professional --- Z86.010, Personal history of colonic polyps D12.2, Benign neoplasm of ascending colon D12.3, Benign neoplasm of transverse colon (hepatic flexure or splenic flexure) D12.4, Benign neoplasm of descending colon CPT copyright 2020 [employer]. All rights reserved. The codes documented in this report are preliminary and upon casting carrier reviewmay be revised to meet current compliance requirements. Yanni Qiu MD 09/14/2024 9:07:18 AM This report has been signed electronically.Yanni Qiu MD Number of Addenda: 0 Note Initiated On: 09/14/2024 8:30 AM Scope In: Scope Out: Endoscopy Department at [address] [id number] IMPRESSION: - The examined portion of the [...] Recently Relevant to Health Maintenance Insurance MEDICARE [facility] Care Teams Composition Tile Layer Relationship Specialty Start Date End Date Tj Torres MD [address] [place] [address] PCP - General Internal Medicine 09/12/24
--- OUTSIDE RECORDS SUMMARY | 2025-03-08 10:36 | XMS_ITS | Clinical Summary ---
Author Organization [facility] Address [address] [place] [address] Care Team Providers Care Sap Project Manager Name Role Phone Aleksandar Easley MD Primary Care Provider Christie coronel Allergies Active Allergy Reactions Severity Noted Date Comments No Known Drug Allergies 02/05/2017 Medications Medication Sig Dispensed Refills Start Date End Date Status valsartan (DIOVAN) 80 MG tablet Take 80 mg by mouth daily. 0 Active montelukast (SINGULAIR) 10 MG tablet Take 10 mg by mouth at bedtime. 0 Active celecoxib (CELEBREX) 200 MG capsule Take 200 mg by mouth 2 times daily. 0 Active simvastatin (ZOCOR) 40 MG tablet Take 40 mg by mouth at bedtime. 0 Active Aspirin (ASPIR-81 OR) Take by mouth. 0 Active sertraline (ZOLOFT) 100 MG tablet Take 100 mg by mouth daily. 1.5 tabs 0 Active budesonide-formoterol (SYMBICORT) 160-4.5 MCG/ACT inhaler Inhale 2 Puffs into the lungs 2 times daily. 0 Active tiotropium (SPIRIVA) 18 MCG inhalation capsule Inhale 18 mcg into the lungs daily. Inhale the contents of one capsule through the Spiriva device every AM 0 Active ALBUTEROL SULFATE 108 (90 BASE) MCG/ACT Aero Soln Inhale 2 Puffs into the lungs every 4 hours as needed. 0 Active trazodone (DESYREL) 50 MG tablet Take 50 mg by mouth at bedtime. 0 Active Ipratropium-Albuterol 0.5-2.5 (3) MG/3ML Solution Inhale 3 mL into the lungs 4 times daily. 0 Active loratadine (CLARITIN) 10 MG tablet Take 1 Tab by mouth daily for 30 days. 30 Tab 0 02/15/2018 Active fluticasone (FLONASE) 50 MCG/ACT nasal spray 2 Sprays by Nasal route daily for 30 days. 1 Bottle 11 02/15/2018 Active loratadine (CLARITIN) 10 MG tablet Take 1 Tab by mouth daily for 30 days. 30 Tab 0 02/15/2018 Active Active Problems Problem Noted Date Hyperlipidemia 02/09/2018 Asthma 08/17/2017 Chronic obstructive pulmonary disease (C OPD) 08/17/2017 Depression 02/05/2017 Hypertension 02/05/2017 History of pneumonia 02/05/2017 History of herpes zoster 02/05/2017 Immunizations Name Administration Dates Next Due Influenza vaccine high dose age 65 and over 08/27 Social History Tobacco Use Types Packs/Day Years Used Date Smoking Tobacco: Never Smokeless Tobacco: Never Sex Assigned at Date Recorded Not on file Last Filed Vital Signs Vital Sign Reading Time Taken Comments Blood Pressure 130/84 09/23/2018 10:58 AM EST Pulse 78 09/23/2018 10:58 AM EST Temperature - - Respiratory Rate - - Oxygen Saturation 96% 09/23/2018 10:58 AM EST r/a Inhaled Oxygen Concentration - - Weight 117.9 kg (260 lb) 09/23/2018 10:58 AM EST Height 182.9 cm (6') 09/23/2018 10:58 AM EST Body Mass Index 35.26 09/23/2018 10:58 AM EST Plan of Treatment Health Maintenance Due Date Last Done Comments Covid-19 Vaccine (#1) 04/06/1946 DEPRESSION SCREEN 1958 DTAP/TDAP/TD (1 - Tdap) 1965 CHOLESTEROL SCREENING 1966 SHINGLES VACCINE (1 of 2) 1996 FALL RISK ASSESSMENT 2011 PNEUMOCOCCAL VACCINE (1 - PCV) 2011 BMI CHECK/ADVISE 10/26/2024 09/23/2018, 02/15/2018 INFLUENZA (Season Ended) 2025 09/23/2018 Care Teams Sap Project Manager Relationship Specialty Start Date End Date Aleksandar Easley MD PCP - General Cardiovascular Disease 02/15/18
--- OUTSIDE RECORDS SUMMARY | 2025-03-08 10:36 | XMS_ITS | Encounter Summary ---
Author Organization [facility] Address [address] [place] [address] Care Team Providers Care Master Cosmetologist Name Role Phone Aleksandar Easley MD Primary Care Provider Christie coronel Encounter Details Date Type Department Care Team Description 03/20/2018 Orders Only Pulmonology - [address] [place] [id number] Michael An MD Pulmonary fibrosis (HCC) Social History Tobacco Use Types Packs/Day Years Used Date Smoking Tobacco: Never Smokeless Tobacco: Never Sex Assigned at Date Recorded Not on file documented as of this encounter Plan of Treatment Not on file documented as of this encounter Procedures Procedure Name Priority Date/Time Associated Diagnosis Comments CHG RADIOLOGIC EXAM CHEST 2 VIEWS Routine 02/15/2018 Pulmonary fibrosis (HCC) documented in this encounter Results * RADIOLOGIC EXAM CHEST 2 VIEWS (02/15/2018) Michael An MD RADIOLOGY documented in this encounter Visit Diagnoses Diagnosis Pulmonary fibrosis (HCC) Postinflammatory pulmonary fibrosis documented in this encounter Care Teams Master Cosmetologist Relationship Specialty Start Date End Date Aleksandar Easley MD PCP - General Cardiovascular Disease 02/15/18 documented as of this encounter
== END 2025-03-08 10:21 | disposition home or self-care (01) ==
PROVIDERS: PCP Internal Medicine; Visit Provider Hospitalist
DX: J41.0 Simple chronic bronchitis (principal); R06.09 Other forms of dyspnea; J45.40 Moderate persistent asthma, uncomplicated; R00.0 Tachycardia, unspecified
CPT/HCPCS: 99214; G2211

== ENCOUNTER → 2025-03-08 09:50 | Outpatient (BNVA) | payer MEDICARE, OTHER, SELFPAY | PROVIDERS: PCP Internal Medicine; Visit Provider Hospitalist | DX: J41.0 Simple chronic bronchitis (principal); J45.40 Moderate persistent asthma, uncomplicated; I27.20 Pulmonary hypertension, unspecified; R06.09 Other forms of dyspnea; R00.0 Tachycardia, unspecified | CPT/HCPCS: 99212 ==

== ENCOUNTER → 2025-03-16 07:34 | Outpatient (REF) | payer MEDICARE, OTHER, SELFPAY ==
--- OUTSIDE RECORDS SUMMARY | 2025-03-16 07:37 | XMS_ITS | Encounter Summary ---
Author Organization [facility] Address [address] [place] [address] Care Team Providers Care Product Safety Head Name Role Phone Aleksandar Easley MD Primary Care Provider Christie coronel Encounter Details Date Type Department Care Team Description 03/20/2018 Orders Only Pulmonology - [address] [place] [id number] Michael An MD Pulmonary fibrosis (HCC) Social [...] fibrosis documented in this encounter Care Teams Product Safety Head Relationship Specialty Start Date End Date Aleksandar Easley MD PCP - General Cardiovascular Disease 02/15/18 documented as of this encounter
--- OUTSIDE RECORDS SUMMARY | 2025-03-16 07:37 | XMS_ITS | Encounter Summary ---
Author Organization [facility] Address [address] [place] [address] Care Team Providers Care Body Shop Manager Name Role Phone Aleksandar Easley MD Primary Care Provider Christie coronel Encounter Details Date Type Department Care Team Description 02/23/2018 Transfer Records Medical Records [address] [place] [id number] Abstract, Provider Social History Tobacco Use Types Packs/Day Years Used Date Smoking Tobacco: Never Smokeless Tobacco: Never Sex Assigned at Date Recorded Not on file documented as of this encounter Plan of Treatment Not on file documented as of this encounter Visit Diagnoses Not on filedocumented in this encounter Care Teams Body Shop Manager Relationship Specialty Start Date End Date Aleksandar Easley MD PCP - General Cardiovascular Disease 02/15/18 documented as of this encounter
--- OUTSIDE RECORDS SUMMARY | 2025-03-16 07:37 | XMS_ITS | Clinical Summary ---
Author Organization [facility] Address [address] [place] [address] Phone Care Team Providers Care Online Merchant Name Role Phone Tj Torres MD Primary Care Provider [phone] Allergies No known active allergies Medications omeprazole [...] DX:Asthma COPD (chronic obstructive pu lmonary disease) ([facility] V24, [facility] V28) DX:COPD (chronic o bstructive pulmonary disease) ([facility]) Hypertension DX:Hypertension Drug ingestion DX:Drug ingestio n Cancer ([facility] V24, [facility] V28) DX:Cancer ([facility]);COMMENT:bladder Depression GERD (gastroesophageal reflux disease) Family [...] Health Maintenance Results * COLONOSCOPY Anesthesia - [facility]; [facility] ENDOSCOPY (09/14/2024 9:05 AM [...] pathology results. Narrative 09/14/2024 9:07 AM EST [facility] GI Patient Name: Yassine Colindres Procedure Date: [...] Procedure Code(s): ? --- Professional --- ? 45586, Colonoscopy, flexible; with removal of ? tumor(s), polyp(s), or other lesion(s) by snare ? technique Diagnosis Code(s): ? --- Professional --- ? Z86.010, Personal history of colonic polyps ? D12.2, Benign neoplasm of ascending colon ? D12.3, Benign neoplasm of transverse colon (hepatic ? flexure or splenic flexure) ? D12.4, Benign neoplasm of descending colon CPT copyright 2020 [employer]. All rights reserved. The codes documented in this report are preliminary and upon spot worker review may be revised to meet current compliance requirements. Yanni Qiu MD 09/14/2024 9:07:18 AM This report has been signed electronically.Yanni Qiu MD Number of Addenda: 0 Note Initiated On: 09/14/2024 8:30 AM Scope In: Scope Out: ? Endoscopy Department at [facility] - [address] [place] [address], ? [place] [address] Procedure Note Yanni Qiu MD - 09/14/2024 [facility] GI Patient Name: Yassine Colindres Procedure Date: [...] not prolapse). Procedure Code(s): --- Professional --- 77956, Colonoscopy, flexible; with removal of tumor(s), polyp(s), or other lesion(s) by snare technique Diagnosis Code(s): --- Professional --- Z86.010, Personal history of colonic polyps D12.2, Benign neoplasm of ascending colon D12.3, Benign neoplasm of transverse colon (hepatic flexure or splenic flexure) D12.4, Benign neoplasm of descending colon CPT copyright 2020 [employer]. All rights reserved. The codes documented in this report are preliminary and upon spot worker reviewmay be revised to meet current compliance requirements. Yanni Qiu MD 09/14/2024 9:07:18 AM This report has been signed electronically.Yanni Qiu MD Number of Addenda: 0 Note Initiated On: 09/14/2024 8:30 AM Scope In: Scope Out: Endoscopy Department at [address] [phone] IMPRESSION: - The examined portion of the [...] Recently Relevant to Health Maintenance Insurance MEDICARE [facility] Care Teams Online Merchant Relationship Specialty Start Date End Date Tj Torres MD [address] [place] [address] PCP - General Internal Medicine 09/12/24
--- OUTSIDE RECORDS SUMMARY | 2025-03-16 07:37 | XMS_ITS | Clinical Summary ---
Author Organization [facility] Address [address] [place] [address] Care Team Providers Care Deburrer Strip Name Role Phone Sathya Herzog MD Primary Care Provider [phone] Allergies No known active allergies Medications Medication [...] age to complete this topic Care Teams Deburrer Strip Relationship Specialty Start Date End Date Sathya Herzog MD [address] [address] PCP - General Internal Medicine 11/29/19
--- NOTE | 2025-03-16 07:38 | CA_ITS ---
Transthoracic Echocardiogram Patient (Last, First, Middle): Yassine Sharpe, Gender: Male Date of : 1945 Age: 79 Procedure Date: 03/16/2025 Procedure Type: Transthoracic Echocardiogram Location: OP Height: 180.34 cm Weight: 100.7 kg BSA: 2.20 m2 Heart Rate: 67 bpm BP: 124 / 56 mmHg Heddler Tier: SB Referring MD: Michael An MD Public Improvement Inspector: Winston Baker MD Symptoms: I27.20 - Pulmonary hypertension, unspecified Study Quality: Adequate w contrast ECG Rhythm: Sinus Conclusions: - 1. Mildly dilated left ventricle with [id number] LV systolic dysfunction with LVEF of 40-45% with grade 1 diastolic dysfunction 2. Normal cardiac valvular Dopplers 3. Normal RV systolic pressure 4. Mildly dilated ascending aorta 3.7 cm 5. No pericardial effusion Findings Procedure Information Contrast agent, definity, is being given per protocol without apparent complications. Left Ventricle Mildly increased left ventricular cavity size. There is normal left ventricular wall thickness. The left ventricular systolic function is mild to moderately decreased. The visually estimated ejection fraction is between 40-45%. Spectral Doppler is indicative of an impaired relaxation filling pattern. E/E prime ratio is <8, consistent with normal filling pressures. Evidence suggests grade I (mild) diastolic dysfunction. Right Ventricle Mildly increased right ventricular cavity size. There is normal right ventricular systolic function. Atria The left atrium is likely dilated. There is no evidence of interatrial shunt. The right atrium is normal in size. Aortic Valve Normal aortic valve structure and function. There is no aortic valve stenosis. There is no aortic valve regurgitation. Mitral Valve Normal mitral valve structure and function. There is trace mitral valve regurgitation. There is no mitral valve stenosis. Pulmonic Valve The pulmonic valve is likely normal. There is trace pulmonic valve regurgitation. Tricuspid Valve Normal tricuspid valve structure. There is trace tricuspid valve regurgitation. The right ventricular systolic pressure is normal. The right ventricular systolic pressure is 23 mmHg. Normal right atrial pressure. There is no evidence of pulmonary hypertension. Great Vessels The pulmonary artery was not well visualized. There is mild dilatation of the ascending aorta measuring 3.70 cm. Small plaque is seen in the sino tubular ridge. Venous The inferior vena cava is normal in size and collapses greater than 50% with inspiration. Pericardium/Pleural There is no evidence of pericardial effusion. Prior Study Comparison No prior study available for comparison. Measurements 2D Linear Measurements IVSd: 0.60 0.6-0.9/0.6-1.0 cm LVIDd: 5.59 3.9-5.3/4.2-5.9 cm LVIDd Index: 2.54 2.4-3.2/2.2-3.1 cm/m2 LVIDs: 4.67 2.0-3.6 cm LVPWd: 0.57 0.7-1.1 cm LA Diam: 4.20 2.7-3.8/3.0-4.0 cm LAIDs Index: 1.91 1.5-2.3 cm/m2 LV Mass: 140.18 67-162/88-224 g LV Mass Index: 63.72 43-95/49-115 g/m2 LVOT Diam: 2.40 3.0+(-)1.3 cm 2D Systolic Function EF 4C: 49.30 >55% EF 2C: 42.40 >55% EF BiP: 43.40 >55% Mitral Valve MV Pk E: 0.47 MV PK A: 0.65 MV Decel Time: 194.00 E/A: 0.70 E'Lateral: 6.42 E'Medial: 4.90 E/E' Med: 9.60 E/E' Lat: 7.30 PHT: 57.00 MVA PHT: 3.86 Decel Vilas: 2.43 Aortic Valve AoV Pk Gonzalo: 0.97 AoV Pk Grad: 4.00 PRADEEP: 3.58 LVOT LVOT Pk Gonzalo: 0.77 LVOT Mn Gonzalo: 0.53 LVOT VTI: 0.15 LVOT Pk Grad: 2.00 LVOT Mn Grad: 1.00 LVOT Diam: 2.40 LVOT Area: 4.52 Diastolic Function MV Pk E: 0.47 MV Pk A: 0.65 E/A: 0.70 E'Medial: 4.90 E/E' Med: 9.60 E' Laterial: 6.42 E/E' Lat: 7.30 Right Ventricle TAPSE (mm): 20.30 TVS' Gonzalo: 8.81 Tricuspid Valve TR Pk Gonzalo: 2.21 TR Pk Grad: 20.00 RA Press: 3.00 RVSP: 23.00 Great Vessels Aorta Sinus of Valsalva: 3.40 2.0-3.5 cm Ao Asc: 3.70 2.1-3.4 cm Ao Arch: 4.20 Pulmonary Veins Pulm Vein S/D 0.70 Pulmonary Valve PV Pk Gonzalo: 1.09 Peak PV Grad: 5.00 Updated in Other Vendor System with Status of Final Winston Baker MD electronically signed on 03/16/2025 4:25:48 PM with status of Final
--- NOTE | 2025-03-16 07:38 | ECG_ITS ---
Test Reason : htn Blood Pressure : */* mmHG Vent. Rate : 75 BPM Atrial Rate : 75 BPM P-R Int : 236 ms QRS Dur : 108 ms QT Int : 366 ms P-R-T Axes : 22 -67 1 degrees QTcB Int : 408 ms Sinus rhythm with 1st degree A-V block with occasional Premature ventricular complexes Left axis deviation Abnormal ECG When compared with ECG of 30-Dec-2022 10:18, Premature ventricular complexes are now Present Premature atrial complexes are no longer Present ND interval has increased Referred By: Michael An Electronically Signed By: Sj Roberts
== END ==
LOC: HO.CARD 07:34
PROVIDERS: PCP Internal Medicine; Visit Provider Hospitalist
DX: J44.9 Chronic obstructive pulmonary disease, unspecified (principal); R06.09 Other forms of dyspnea; R00.0 Tachycardia, unspecified; I27.20 Pulmonary hypertension, unspecified
CPT/HCPCS: 93005; 93306; Q9957

== ENCOUNTER → 2025-03-16 07:38 | Outpatient (BNV) | payer MEDICARE, OTHER, SELFPAY | PROVIDERS: PCP Internal Medicine; Visit Provider Internal Medicine Cardiovascular Disease | DX: I51.89 Other ill-defined heart diseases (principal); I77.810 Thoracic aortic ectasia; I70.0 Atherosclerosis of aorta | CPT/HCPCS: 93306 ==

== ENCOUNTER 2025-03-18 07:23 | Outpatient (REF) | payer MEDICARE, OTHER, SELFPAY ==
[2025-03-18 07:46] LABS: MANUAL DIFF FLAG NO
[2025-03-18 07:53] LABS: Venous Blood Gas Refer to POC result
[2025-03-18 07:59] LABS: VBG Base Excess -0.4 mmol/L; VBG HCO3 25 mmol/L (22-26); VBG pCO2 44 mmHg; VBG pH 7.36 (7.32-7.43); VBG pO2 47 mmHg
[2025-03-18 08:29] LABS: Basophils Absolute Auto 0.1 X10*3/uL (0.0-0.2); Basophils Percent Auto 0.9 % (0-2); Eosinophils Absolute Auto 0.1 X10*3/uL (0.0-0.4); Eosinophils Percent Auto 1.3 % (0-4); Hematocrit 45.3 % (42.0-52.0); Hemoglobin 14.7 g/dl (14.0-18.0); Imm Gran Abs Auto 0.01 X10*3/uL (0.00-0.03); Imm Gran Pct Auto 0.1 % (0.0-0.4); Lymphocytes Absolute Auto 1.3 X10*3/uL (1.2-4.9); Lymphocytes Percent Auto 19.2 % (20-40); Mean Corpuscular HGB Conc 32.5 g/dl (31.0-36.0); Mean Corpuscular Hemoglobin 29.1 pg (27.0-33.0); Mean Corpuscular Volume 89.5 fL (80.0-98.0); Mean Platelet Volume 11.2 fL (9.4-12.4); Monocytes Absolute Auto 0.5 X10*3/uL (0.1-1.2); Neutrophils Absolute Auto 4.9 x10*3/uL (2.0-8.3); Neutrophils Percent Auto 71.5 % (45-73); Platelet Count 183 X10*3/uL (160-400); Red Blood Count 5.06 X10*6/uL (4.60-5.80); Red Cell Distribution Width 14.1 % (11.0-16.0); White Blood Count 6.8 X10*3/uL (4.8-10.8)
[2025-03-18 08:58] LABS: B Type Natriuretic Peptide 105 pg/mL (<100)
[2025-03-18 09:16] LABS: Erythrocyte Sedimentation Rate 4 MM/HR (0-15)
[2025-03-21 21:54] LABS: Immunoglobulin E 57 kU/L (<OR=114)
== END 2025-03-18 07:24 | disposition home or self-care (01) ==
LOC: HO.LAB 07:23
PROVIDERS: PCP Internal Medicine; Visit Provider Hospitalist
DX: R00.0 Tachycardia, unspecified (principal); R06.09 Other forms of dyspnea; J45.909 Unspecified asthma, uncomplicated
CPT/HCPCS: 36415; 82785; 82803; 83880; 85025; 85652

== ENCOUNTER 2025-04-14 11:10 | Outpatient (AMB) | payer MEDICARE, OTHER, SELFPAY ==
--- NOTE | 2025-04-14 11:21 | MHC.OFFVIS ---
Vital Signs 04/14/25 11:23 Height 6 ft Weight 222 lb 10.67 oz BMI 30.2 BP 120/70 Blood Pressure Location Lt brachial Position Sitting Pulse 89 Pulse Source Monitor Intake Visit Reasons: MARKER DELIVERY/ Juve/ tachycardia Intake Note: MARKER DELIVERY/tachy School Bus Technician Required: No Accompanied by: Spouse Allergies No Known Allergies Allergy (Verified 03/08/25 09:59) Medication List - Last Reconciled 04/14/25 by Sj Roberts MD albuterol sulfate 2.5 mg (3 mL) inhalation QID 90 days albuterol sulfate 2.5 mg inhalation QID PRN budesonide 0.5 mg (2 mL) inhalation BID 30 days celecoxib 200 mg PO DAILY fluticasone propion-salmeterol 500-50 mcg/dose (Wixela Inhub) 1 inh inhalation BID 90 days montelukast 10 mg PO DAILY 90 days sertraline 200 mg PO DAILY simvastatin 80 mg PO DAILY tiotropium bromide 2.5 mcg/actuation (Spiriva Respimat) 2 puffs inhalation DAILY 90 days trazodone 100 mg PO BEDTIME PRN valsartan 80 mg PO DAILY HPI Comments Details: [age] year gentleman who is here for dyspnea on exertion ongoing for few years with worsening in the last 6 months. He also has irregular heartbeat which has been ongoing for many years. In 2022 underwent dobutamine stress echocardiogram at [facility]. The documentation showed that he had premature atrial complexes before the the test was performed and had mild cardiomyopathy based on the testing. No significant ischemia was noted with the dobutamine stress echocardiogram. He had echocardiography performed at [facility] in February 2025 which showed EF of 40-45%. No significant wall motion abnormality was noted. Mild dilation of ascending aorta 3.7 cm was noted. He is saying that he has been getting dyspnea on exertion for a few years but in the last 6 months things have worsened significantly. Now he gets out of breath with minimal activity. He is denying any chest discomfort. He has nighttime snoring and also gets some orthopnea like episodes off and on. No peripheral edema. [facility] Medical History (Updated 04/14/25 @ 12:18 by Sj Roberts MD) Tachyarrhythmia Asthma Dyspnea COPD (chronic obstructive pulmonary disease) Family History (Updated 04/14/25 @ 11:28 by Pippa Sitll [facility]) Father Heart attack Paternal Grandfather Heart attack Social History (Updated 04/14/25 @ 11:28 by Pippa Still [facility]) Unable to assess alcohol history related to: Unable to respond Patient Tobacco Use Status: Never used Tobacco Review of Systems Const Denies chills, Denies fatigue, Denies fever(s), Denies frequent falls, Denies weakness, Denies weight gain and Denies weight loss ENT Denies dizziness Card Reports chest pain, Denies leg edema, Denies lightheadedness, Reports palpitations, Denies dyspnea, Reports dyspnea on exertion and Reports orthopnea Resp Denies cough, Denies dyspnea and Reports dyspnea on exertion GI Denies bloating and Denies change in bowel habits Musc Denies muscle weakness, Denies numbness and Denies tingling Neuro Denies dizziness, Denies frequent falls, Denies numbness, Denies tingling and Denies weakness Endo Denies fatigue and Reports palpitations Physical Exam Vital Signs: Last Vital Signs Pulse 89 04/14/25 11:23 BP 120/70 04/14/25 11:23 BMI result Body Mass Index 30.2 GENERAL APPEARANCE: in no acute distress, pleasant. NECK: no carotid bruit, no jugular venous distention. SKIN: no suspicious lesions, warm and dry. HEART: no murmurs, regular rate and rhythm. LUNGS: clear to auscultation bilaterally. ABDOMEN: soft, nontender. EXTREMITIES: no edema. PERIPHERAL PULSES: equal. NEUROLOGIC: No gross deficits, AAO X 3 Office Procedures EKG Details: NSR with occasional PVCs, low voltage, left axis deviation, Anterolateral infarct, QTc 418 msec. [id number], Complete Assessment & Plan Assessment & Plan (1) Dyspnea on exertion: Code(s): R06.09 - Other forms of dyspnea Category: Medical (2) Cardiomyopathy: Code(s): I42.9 - Cardiomyopathy, unspecified Category: Medical Plan Very pleasant 79-year-old gentleman who is here for 1st office visit. He has been experiencing dyspnea on exertion. He has echocardiography has shown mild cardiomyopathy which goes back to 2022 dobutamine stress echocardiogram which showed mild cardiomyopathy with no dobutamine induced regional wall motion abnormality. He is saying that his dyspnea has significantly worsened in the last 6 months and he is getting symptoms with minimal activity. He has anterolateral Q-waves on the EKG which are chronic. I have advised him to undergo left and right heart catheterization to have invasive assessment of filling pressures and to assess for obstructive coronary artery disease. He should be taking baby aspirin. He is currently on simvastatin 80 mg and we can have lipid panel tested on him again. I will do some basic blood workup before the left and right heart catheterization. Thank you for allowing me to participate in the care of your patient. Please feel free to contact me if you have any questions. Orders: Orders Basic Metabolic Panel Today I42.9 - Cardiomyopathy, unspecified Prothrombin Time INR Today I42.9 - Cardiomyopathy, unspecified Cardiac Cath KELSEA Diagnostic Today I42.9 - Cardiomyopathy, unspecified B Type Natriuretic Peptide Today I42.9 - Cardiomyopathy, unspecified Complete Blood Count no Diff Today I42.9 - Cardiomyopathy, unspecified Coding Level of Care Code New Pt Level 4 (98514) Diagnoses Dyspnea on exertion R06.09 Cardiomyopathy I42.9 CPT Codes EKG - CPT: 00034-[id number], Complete ([id number])
[2025-04-14 11:23] VITALS: BP 120/70; PULSE 89; BMI 30.2
--- OUTSIDE RECORDS SUMMARY | 2025-04-14 11:32 | XMS_ITS | Clinical Summary ---
Author Organization [facility] Address [address] [place] [address] Phone Care Team Providers Care Major Account Representative Name Role Phone Tj Torres MD Primary Care Provider [phone] Allergies No known active allergies Medications omeprazole [...] DX:Asthma COPD (chronic obstructive pu lmonary disease) ([facility] V24, [facility] V28) DX:COPD (chronic o bstructive pulmonary disease) ([facility]) Hypertension DX:Hypertension Drug ingestion DX:Drug ingestio n Cancer ([facility] V24, [facility] V28) DX:Cancer ([facility]);COMMENT:bladder Depression GERD (gastroesophageal reflux disease) Family History [...] 83 09/14/2024 9:29 AM EST Temperature 35.6 C (96.1 F) 09/14/2024 9:06 AM EST Respiratory Rate 16 09/14/2024 9:29 AM EST [...] Maintenance Results * COLONOSCOPY Anesthesia - MAC; [facility] ENDOSCOPY (09/14/2024 9:05 AM EST) Anatomical Region Laterality Modality Endoscopy 09/14/2024 8:30 AM EST Impressions 09/14/2024 9:07 AM EST - The examined portion of the ileum was normal. - One 3 mm polyp in the ascending colon, removed with a cold snare. Resected and retrieved. - One 2 mm polyp in the transverse colon, removed with a cold snare. Resected and retrieved. - One 2 mm polyp in the descending colon, removed with a cold snare. Resected and retrieved. - Diverticulosis in the sigmoid colon. - Internal hemorrhoids. Recommendation: - Await pathology results. - Repeat colonoscopy for surveillance based on pathology results. Narrative 09/14/2024 9:07 AM EST [facility] GI Patient Name: Yassine Sharpe Procedure Date: 09/14/2024 8:30 AM Date of : 1945 Age: 78 Gender: Male Note Status: Finalized Attending MD: Yanni Qiu MD, Procedure Date No Time: 09/14/2024 Procedure: Colonoscopy Indications: High risk colon cancer surveillance: Personal history of colonic polyps Providers: Yanni Qiu MD Referring MD: Tj Torres MD Medicines: Propofol per Anesthesia Complications: No immediate complications. Estimated Blood Loss: Estimated blood loss: none. Procedure: Pre-Anesthesia Assessment: - ASA Grade Assessment: III - A patient with severe systemic disease. After I obtained informed consent, the scope was passed under direct vision. Throughout the procedure, the patient's blood pressure, pulse, and oxygen [...] The polyp was removed with a cold snare. Resection and retrieval were complete. A 2 mm polyp was found in the transverse colon. The polyp was sessile. The polyp was removed with a cold snare. Resection and retrieval were complete. A 2 mm polyp was found in the descending colon. The polyp was sessile. The polyp was removed with a cold snare. Resection and retrieval were complete. Multiple medium-mouthed diverticula were found in the sigmoid colon. Internal hemorrhoids were found during retroflexion. The hemorrhoids were Grade I (internal hemorrhoids that do not prolapse). Procedure Code(s): --- Professional --- 26745, Colonoscopy, flexible; with removal of tumor(s), polyp(s), or other lesion(s) by snare technique Diagnosis Code(s): --- Professional --- Z86.010, Personal history of colonic polyps D12.2, Benign neoplasm of ascending colon D12.3, Benign neoplasm of transverse colon (hepatic flexure or splenic flexure) D12.4, Benign neoplasm of descending colon CPT copyright 2020 [employer]. All rights reserved. The codes documented in this report are preliminary and upon registration coordinator review may be revised to meet current compliance requirements. Yanni Qiu MD 09/14/2024 9:07:18 AM This report has been signed electronically.Yanni Qiu MD Number of Addenda: 0 Note Initiated On: 09/14/2024 8:30 AM Scope In: Scope Out: Endoscopy Department at [facility] - [address] [place] [id number] Procedure Note Yanni Qiu MD - 09/14/2024 [facility] GI Patient Name: Yassine Sharpe Procedure [...] not prolapse). Procedure Code(s): --- Professional --- 41175, Colonoscopy, flexible; with removal of tumor(s), polyp(s), or other lesion(s) by snare technique Diagnosis Code(s): --- Professional --- Z86.010, Personal history of colonic polyps D12.2, Benign neoplasm of ascending colon D12.3, Benign neoplasm of transverse colon (hepatic flexure or splenic flexure) D12.4, Benign neoplasm of descending colon CPT copyright 2020 [employer]. All rights reserved. The codes documented in this report are preliminary and upon registration coordinator reviewmay be revised to meet current compliance requirements. Yanni Qiu MD 09/14/2024 9:07:18 AM This report has been signed electronically.Yanni Qiu MD Number of Addenda: 0 Note Initiated On: 09/14/2024 8:30 AM Scope In: Scope Out: Endoscopy Department at [facility] - [address] [place] [phone] IMPRESSION: - The examined portion of the [...] Recently Relevant to Health Maintenance Insurance MEDICARE [facility] Care Teams Major Account Representative Relationship Specialty Start Date End Date Tj Torres MD [facility] [place] [address] PCP - General Internal Medicine 09/12/24
== END 2025-04-14 12:42 | disposition home or self-care (01) ==
LOC: HO.HCS 11:11
PROVIDERS: PCP Internal Medicine; Visit Provider Internal Medicine Cardiovascular Disease
DX: R06.09 Other forms of dyspnea (principal); I42.9 Cardiomyopathy, unspecified; I49.3 Ventricular premature depolarization
CPT/HCPCS: 93010; 99204

== ENCOUNTER → 2025-04-14 11:10 | Outpatient (BNVA) | payer MEDICARE, OTHER, SELFPAY | PROVIDERS: PCP Internal Medicine; Visit Provider Internal Medicine Cardiovascular Disease | DX: I42.9 Cardiomyopathy, unspecified (principal); R06.09 Other forms of dyspnea; R94.31 Abnormal electrocardiogram [ECG] [EKG] | CPT/HCPCS: 93005; 99202 ==

== ENCOUNTER 2025-05-03 09:17 | Outpatient (REF) | payer MEDICARE, OTHER, SELFPAY ==
[2025-05-03 10:18] LABS: Hematocrit 42.7 % (42.0-52.0); Hemoglobin 13.9 g/dl (14.0-18.0); Mean Corpuscular HGB Conc 32.6 g/dl (31.0-36.0); Mean Corpuscular Hemoglobin 29.1 pg (27.0-33.0); Mean Corpuscular Volume 89.3 fL (80.0-98.0); NRBC Abs Auto 0.000 X10*3/uL (0.0-0.012); NRBC Pct Auto 0.0 /100WBC (0.0-0.2); Platelet Count 216 X10*3/uL (160-400); Red Blood Count 4.78 X10*6/uL (4.60-5.80); White Blood Count 6.4 X10*3/uL (4.8-10.8)
[2025-05-03 10:25] LABS: INTERNATIONAL NORM RATIO 0.9 (0.9-1.1); Prothrombin Time 9.9 SEC (10.9-12.4)
[2025-05-03 10:56] LABS: Anion Gap 12 (12-20); B Type Natriuretic Peptide 64 pg/mL (<100); Blood Urea Nitrogen 14 mg/dL (9-16); Calcium 8.7 mg/dL (8.4-10.2); Carbon Dioxide 23 mmol/L (22-29); Chloride 108 mmol/L (96-108); Estimated Glomerular Filt Rate > 60; Potassium 4.2 mmol/L (3.3-5.1); Sodium 139 mmol/L (135-145)
== END 2025-05-03 09:18 | disposition home or self-care (01) ==
LOC: HO.LAB 09:17
PROVIDERS: PCP Internal Medicine; Visit Provider Internal Medicine Cardiovascular Disease
DX: I42.9 Cardiomyopathy, unspecified (principal)
CPT/HCPCS: 36415; 80048; 83880; 85027; 85610

== ENCOUNTER → 2025-05-23 23:59 | Outpatient (BNV) | payer MEDICARE, OTHER, SELFPAY | PROVIDERS: PCP Internal Medicine; Visit Provider Internal Medicine Cardiovascular Disease | DX: I20.89 Other forms of angina pectoris (principal); I50.9 Heart failure, unspecified | CPT/HCPCS: 93460; 99152 ==

== ENCOUNTER 2025-06-06 09:17 | Outpatient (AMB) | payer MEDICARE, OTHER, SELFPAY ==
[2025-06-06 09:45] VITALS: BP 118/62; PULSE 61; BMI 29.8
--- NOTE | 2025-06-06 09:45 | A.OFFVIS_ITS ---
Vital Signs 06/06/25 09:45 Height 6 ft Weight 219 lb 9.286 oz BMI 29.8 BP 118/62 Blood Pressure Location Rt brachial Position Sitting Pulse 61 Pulse Source Pulse Oximeter Intake Visit Reasons: Follow up post cardiac cath Paper Sheeter Required: No [employer] Advanced Operator Maintainer: [employer] Advanced Operator Maintainer Present Allergies No Known Allergies Allergy (Verified 06/06/25 09:48) Medication List - Last Reconciled 06/06/25 by Jesica Box NP-C albuterol sulfate 2.5 mg (3 mL) inhalation QID 90 days albuterol sulfate 2.5 mg inhalation QID PRN budesonide 0.5 mg (2 mL) inhalation BID 30 days celecoxib 200 mg PO DAILY fluticasone propion-salmeterol 500-50 mcg/dose (Wixela Inhub) 1 inh inhalation BID 90 days montelukast 10 mg PO DAILY 90 days sertraline 200 mg PO DAILY simvastatin 80 mg PO DAILY tiotropium bromide 2.5 mcg/actuation (Spiriva Respimat) 2 puffs inhalation DAILY 90 days trazodone 100 mg PO BEDTIME PRN valsartan 80 mg PO DAILY HPI HPI Follow up post cardiac cath: Details: Yassine is a 79-year-old male with past medical history of COPD, mild cardiomyopathy, shortness of breath with exertion who recently underwent cardiac catheterization and now presents for follow-up. Today he reports that his right radial catheterization site is feeling good. He continues to have some shortness of breath with exertional activities. He has cut back on exertional activities while testing is being done. He has no chest discomfort at rest or during activity. He will notice occasional heart palpitations especially when laying on his left side. No lightheadedness, presyncope, syncope, falls. Drinks 2-3 caffeinated beverages per day. Tells me that when he is sleeping on his back he will wake up with gasping at times. Taking meds as directed. is present. [facility]LY [facility] Medical History Tachyarrhythmia Asthma Dyspnea COPD (chronic obstructive pulmonary disease) Surgical History History of cardiac cath Family History Father Heart attack Paternal Grandfather Heart attack Social History Unable to assess alcohol history related to: Unable to respond Patient Tobacco Use Status: Never used Tobacco Review of Systems Const All systems reviewed & are unremarkable except as noted in HPI and below ENT Denies dizziness Card Denies chest pain, Denies chest pain at rest, Denies chest pain with activity, Denies rapid heart rate, Denies pedal edema, Denies edema, Denies leg edema, Denies lightheadedness, Denies palpitations, Denies dyspnea, Denies dyspnea on exertion and Denies orthopnea Resp Details: gasping at night - wakes him from sleep Denies cough, Denies dyspnea and Denies dyspnea on exertion GI Denies hematochezia and Denies change in stool character Musc Details: right radial cath site feels good Denies abnormal gait, Denies limited range of motion, Denies muscle cramps, Denies muscle weakness, Denies numbness, Denies radiating pain into limb, Denies stiffness and Denies tingling Neuro Denies abnormal gait, Denies dizziness, Denies numbness and Denies tingling Endo Denies palpitations Physical Exam Vital Signs: Last Vital Signs Pulse 61 06/06/25 09:45 BP 118/62 06/06/25 09:45 BMI result Body Mass Index 29.8 Const General: cooperative, healthy appearing, comfortable and no acute distress Orientation/consciousness: patient oriented x3 Neck Neck: Yes normal visual inspection and Yes no JVD Resp Effort & Inspection: normal respiratory effort Auscultation: clear to auscultation bilaterally, no crackles, no rales, no rhonchi and no wheezes Cardio Rate: regular rate Rhythm: regular rhythm Heart sounds: S1 normal heart sound present, S2 normal heart sound present, no gallops, no murmurs and no rubs Neuro General: patient oriented x3 Extrem Other: right radial cath site with easily palpable right radial pulse, right hand assessment normal General: Yes normal to inspection, No no pedal edema and No calf tenderness Psych Appearance: grossly normal Mental Status: mental status grossly normal Speech and movement: Normal speech and movement present Assessment & Plan Assessment & Plan (1) Cardiomyopathy: Code(s): I42.9 - Cardiomyopathy, unspecified Category: Medical Plan: Echocardiogram showing mild cardiomyopathy. Last echo 03/16/2025 showed EF 40- 45%, grade 1 diastolic dysfunction, ascending aorta 3.7 cm. Cardiac catheterization done 05/23/2025 shows no significant coronary artery disease, frequent PVCs during the procedure. His cardiomyopathy may be related to frequent PVCs. He has a Holter monitor scheduled following this appointment today. He also reports symptoms concerning for possible sleep apnea. Will order home sleep study for further evaluation. Continue valsartan for neurohormonal modulation. Will hold off on beta-kim till after Holter monitor results reviewed. Plan to call him with test results. Cardiology follow-up 3 months, sooner if needed. (2) S/P cardiac cath: Comment: 05/23/2025 distal left main minimal stenosis, lad mild luminal irregularities, left circumflex normal, RCA minimal luminal irregularities Code(s): Z98.890 - Other specified postprocedural states Category: Surgical Plan: Right radial catheterization site well healed (3) PVC (premature ventricular contraction): Code(s): I49.3 - Ventricular premature depolarization Category: Medical Plan: Frequent PVCs seen during cardiac catheterization procedure. Holter monitor being applied today. Caffeine reduction reviewed. (4) Dyspnea on exertion: Code(s): R06.09 - Other forms of dyspnea Category: Medical Plan: shortness of breath with exertion may be multifactorial in nature. He does have COPD, overweight, somewhat sedentary, mild cardiomyopathy. Reviewed this with him. Informed he has no significant coronary artery disease. He is not fluid overloaded on examination today. No med changes made at this time. (5) Hypersomnia: Code(s): G47.10 - Hypersomnia, unspecified Category: Medical Plan: Home sleep study being ordered. Plan I discussed with the patient the presence of premature ventricular contractions and the potential impact on heart function. We reviewed the need for a heart monitor to assess PVC frequency and the possibility of medication if PVCs are significant. The patient was informed about the suspected sleep apnea and the plan for a home sleep study, with a potential in-lab study if results are abnormal. I advised reducing caffeine intake to help manage palpitations and discussed the importance of follow-up with Dr. France in three months, or sooner if needed. Orders: Orders RT home sleep study Today G47.10 - Hypersomnia, unspecified, I42.9 - Cardiomyopathy, unspecified Patient Instructions: - Wear the heart monitor as instructed to evaluate PVC frequency. - Reduce caffeine intake to help manage palpitations. - Complete the home sleep study as directed, and follow up if an in-lab study is needed. - Follow up with Dr. Roberts in three months, or sooner if symptoms worsen. Patient was informed and verbally consented to the use of an ambient scribe for clinic note documentation during this visit. Visit time spent on chart review, interview, assessment, orders, documentation. Coding Level of Care Code Est Pt Level 4 (33967) Complex EM visit Add On G2211 Diagnoses Cardiomyopathy I42.9 S/P cardiac cath Z98.890 PVC (premature ventricular contraction) I49.3 Dyspnea on exertion R06.09 Hypersomnia G47.10 Time Spent (min) 28
--- OUTSIDE RECORDS SUMMARY | 2025-06-06 09:51 | XMS_ITS | Clinical Summary ---
Author Organization [facility] Address [address] [address] Phone Care Team Providers Care Senior It Project Manager Name Role Phone Sathya Herzog MD Primary Care Provider [phone] Allergies No known active allergies Medications valsartan (DIOVAN) 80 MG tablet Take 80 mg by mouth. Active traZODone (DESYREL) 100 MG tablet Take 100 mg by mouth. Active traZODone (DESYREL) 50 MG tablet Take 50 mg by mouth. Active tiotropium (SPIRIVA HANDIHALER) 18 mcg inhalation capsule Inhale 18 mcg into the lungs. Active simvastatin (ZOCOR) 40 MG tablet Take 40 mg by mouth. Active sertraline (ZOLOFT) 100 MG tablet Take 150 mg by mouth. Active montelukast (SINGULAIR) 10 mg tablet Take 10 mg by mouth. Active meloxicam (MOBIC) 7.5 MG tablet TAKE 1 TABLET(7.5 MG) BY MOUTH DAILY 0 Active celecoxib (CELEBREX) 200 MG capsule Take 200 mg by mouth. Active budesonide-form oterol (SYMBICORT) 160-4.5 mcg/actuation inhaler Inhale 2 puffs into the lungs. Active aspirin 81 MG EC tablet Take by mouth. Activ e albuterol 90 mcg/actuation inhaler Inhale 2 puffs into the lungs. Active acetaminophen (TYLENOL) 325 mg tablet Take 2 tablets (650 mg total) by mouth every 6 (six) hours as needed for mild pain. 50 tablet 0 Active Additional Information Patient not taking.Reported on 06/18/2020 oxyCODONE 5 MG immediate release tablet Take 1-2 tablets (5-10 mg total) by mouth every 4 (four) hours as needed for moderate pain. Partial fill ok 30 tablet 0 Active Additional Information Patient not taking.Reported on 06/18/2020 docusate sodium (COLACE) 100 MG capsule Take 1 capsule (100 mg total) by mouth 2 (two) times a day. 10 capsule 0 Active Additional Information Patient not taking.Reported on 06/18/2020 Social History Tobacco Use Types Packs/Day Years Used Date Smoking Tobacco: Never Smokeless Tobacco: Never Alcohol Use Standard Drinks/Week Comments Not Currently 0 (1 standard drink = 0.6 oz pur e alcohol) Education Answer Date Recorded Are you interested in more education? Not on taylor e 02/20/2023 Are you concerned about learning? Not on file 02/20/2023 No 02/20/2023 No 02/20/2023 Digital Access Answer Date Recorded No 03/21/2023 No 03/21/2023 Reliable internet access at home? Not on file 03/21/2023 Device with a working camera? Not on file Sex and Gender Information Value Date Recorded Sex Assigned at Male 02/25/2020 9:05 AM EDT Legal Sex Male 12:10 PM EDT Gender Identity Male 02/25/2020 9:05 AM EDT Sexual Orientation Straight 02/25/2020 9: 05 AM EDT Last Filed Vital Signs Vital Sign Reading Time Taken Comments Blood Pressure 152/86 06/05/2020 10:50 AM EDT Pulse 74 06/05/2020 10:50 AM EDT Temperature 36.8 C (98.2 F) 06/05/2020 10:30 AM EDT Respiratory Rate 14 06/05/2020 10:50 AM EDT Oxygen Saturation 92% 06/05/2020 10:50 AM EDT Inhaled Oxygen Concentration - - Weight 108 kg (238 lb) 01/28/2021 9:58 AM EDT Height 182.9 cm (6') 01/28/2021 9:58 AM EDT Body Mass Index 32.28 01/28/2021 9:58 AM EDT Plan of Treatment Health Maintenance Due Date Last Done Comments Adult Td,Tdap Booster 1945 CREATININE LEVEL 1945 LIPID PANEL 1946 POTASSIUM LEVEL 1946 DEPRESSION SCREENING 1958 HEPATITIS C SCREENING 1964 PNEUMOCOCCAL VACCINES (50+ years) (2 of 2 - PPSV23) 10/04/2016 10/04/2015 ZOSTER VACCINES (3 of 3) 09/03/202007/09/ 020, 05/17/2012 RSV VACCINE (1 - 1-dose 75+ series) 2021 COVID-19 VACCINE (3 - 2023-2 5 season) 2024 01/01/2021, 12/04/2020 SMOKING STATUS SCREENING (On ce After 26 Yrs) Completed 01/28/2021 HEPATITIS A VACCINES Aged Out No long er eligible based on patient's age to complete this topic HIB VACCINES Aged Out No longer eligi ble based on patient's age to complete this topic MENINGOCOCCAL VACCINES (ACWY) Aged Out No longer eligible based on patient's age to complete this topic MENINGOCOCCAL VACCINES (B) Aged Out N o longer eligible based on patient's age to complete this topic Medical Devices Implanted Type Area Dairy Helper Device Identifier Shelf Expiration Date Model / Serial / Lot Lecompte Suture 19.1x4.75mm Arthroscopy Swivelock Biocomposite Vented Closed Eyelet Pk/5ea - [id number] Implanted:Qty: 1 on 06/05/2020 by Christen Wills MD at [facility] Right: Shoulder ARTHREX 03/25/2024 AR-2324BC C / / Lecompte Suture 19.1x4.75mm Arthroscopy Swivelock Biocomposite Vented Closed Eyelet Pk/5ea - [id number] Implanted:Qty: 1 on 06/05/2020 by Christen Wills MD at [facility] Right: Shoulder ARTHREX 03/25/2024 AR-2324BC C / / [id number] Lecompte Suture 19.1x4.75mm Vented Closed Eyelet Fibertape Loop Swivelock Biocomposite - [id number] Implanted:Qty: 1 on 06/05/2020 by Christen Wills MD at [facility] Right: Shoulder ARTHREX 02/23/2024 AR-[address] / / [id number] Lecompte Suture 4.75x19.1mm Arthroscopy Swivelock Biocomposite Vented Closed Eyelet Tigertape Loop - [id number] Implanted:Qty: 1 on 06/05/2020 by Christen Wills MD at [facility] STANDARD Right: Shoulder ARTHREX 09/24/2023 AR-2324BC CTT / / [id number] Insurance MEDICARE PART A & B Member Subscriber Plan / Payer (Ef fective 2014-Present) Name:Yassine Sharpe Member ID:[id number] Relation to Subscriber:Self Name:AshishYassine dillard Subscriber ID:[id number] Payer ID:[id number] Group ID:Not on file Type:Medicare Address: [facility] [employer] [facility] [address] [place] [address] [facility] MEDICARE SUPPLEMENT Care Teams Senior It Project Manager Relationship Specialty Start Date End Date Sathya Herzog MD [address] [address] PCP - General Internal Medicine 3/31/20 Additional Source Comments The information contained in this document represents components of the legal health record. It is not the complete legal health record.[facility]
--- OUTSIDE RECORDS SUMMARY | 2025-06-06 09:51 | XMS_ITS | Clinical Summary ---
Author Organization [facility] Address [address] [place] [address] Phone Care Team Providers Care Special Effects Designer Name Role Phone Tj Torres MD Primary Care Provider [phone] Allergies No known active allergies Medications omeprazole [...] DX:Asthma COPD (chronic obstructive pu lmonary disease) ([facility] V24, [facility] V28) DX:COPD (chronic o bstructive pulmonary disease) ([facility]) Hypertension DX:Hypertension Drug ingestion DX:Drug ingestio n Cancer ([facility] V24, [facility] V28) DX:Cancer ([facility]);COMMENT:bladder Depression GERD (gastroesophageal reflux disease) Family [...] series) 1964 Cholesterol Screening (Lipid Panel) 08/10/2024 Hepatitis C Screening 08/10/2024 Hypertension/CHF/CAD Annual BMP Blood Test 08/10/2024 Medicare Annual Wellness Visit 08/10/2024 Social Influencers of Health Screening 08/10/2024 Depression Screening 10/26/2024 COVID-19 Vaccine ( season) 2025 07/18/2024, 07/31/2023, 10/02/2022, Additional history exists Influenza Vaccine (#1) 2025 , 07/17/2023, 07/09/2022, Additional history exists Falls Risk Assessment 09/14/2025 09/14/2024 DTaP,Tdap,and Td Vaccines (4 - Td or Tdap) 10/15/2027 10/15/2017, 10/15/2017, 10/12/2007 Zoster Vaccines Completed 07/09/2020, 09/26, 05/17/2012 Pneumococcal Vaccine: 50+ Years Completed 01/12/2023, 10/04/2015, 05/17/2012, Additional history exists RSV Immunization Adult Patients [...] Maintenance Results * COLONOSCOPY Anesthesia - MAC; [facility] ENDOSCOPY (09/14/2024 9:05 AM EST) [...] pathology results. Narrative 09/14/2024 9:07 AM EST [facility] GI Patient Name: Yassine Sharpe Procedure [...] not prolapse). Procedure Code(s): --- Professional --- 84707, Colonoscopy, flexible; with removal of tumor(s), polyp(s), or other lesion(s) by snare technique Diagnosis Code(s): --- Professional --- Z86.010, Personal history of colonic polyps D12.2, Benign neoplasm of ascending colon D12.3, Benign neoplasm of transverse colon (hepatic flexure or splenic flexure) D12.4, Benign neoplasm of descending colon CPT copyright 2020 [employer]. All rights reserved. The codes documented in this report are preliminary and upon university relations vice president review may be revised to meet current compliance requirements. Yanni Qiu MD 09/14/2024 9:07:18 AM This report has been signed electronically.Yanni Qiu MD Number of Addenda: 0 Note Initiated On: 09/14/2024 8:30 AM Scope In: Scope Out: Endoscopy Department at [facility] - [address] [place] [id number] Procedure Note Yanni Qiu MD - 09/14/2024 [facility] GI Patient Name: Yassine Sharpe Procedure [...] not prolapse). Procedure Code(s): --- Professional --- 20166, Colonoscopy, flexible; with removal of tumor(s), polyp(s), or other lesion(s) by snare technique Diagnosis Code(s): --- Professional --- Z86.010, Personal history of colonic polyps D12.2, Benign neoplasm of ascending colon D12.3, Benign neoplasm of transverse colon (hepatic flexure or splenic flexure) D12.4, Benign neoplasm of descending colon CPT copyright 2020 [employer]. All rights reserved. The codes documented in this report are preliminary and upon university relations vice president reviewmay be revised to meet current compliance requirements. Yanni Qiu MD 09/14/2024 9:07:18 AM This report has been signed electronically.Yanni Qiu MD Number of Addenda: 0 Note Initiated On: 09/14/2024 8:30 AM Scope In: Scope Out: Endoscopy Department at [facility] - [address] [place] [id number] IMPRESSION: - The examined portion of the [...] Health Maintenance Insurance MEDICARE [facility] Care Teams Special Effects Designer Relationship Specialty Start Date End Date Tj Torres MD [facility] [place] [address] PCP - General Internal Medicine 09/12/24
--- OUTSIDE RECORDS SUMMARY | 2025-06-06 09:51 | XMS_ITS | Clinical Summary ---
Author Organization [facility] Address [address] [place] [address] Care Team Providers Care Inspector Agricultural Commodities Name Role Phone Sathya Herzog MD Primary Care Provider [phone] Allergies No known active allergies Medications Medication [...] 1-dose 75+ series) 2021 Influenza Vaccine (#1) 2025 09/23/2018 Hepatitis B Vaccines Aged Out No long er eligible based on patient's age to complete this topic RSV Ped < 20 months Aged Out No longe r eligible based on patient's age to complete this topic Care Teams Inspector Agricultural Commodities Relationship Specialty Start Date End Date Sathya Herzog MD [address] [address] PCP - General Internal Medicine 11/29/19
== END 2025-06-06 10:25 | disposition home or self-care (01) ==
LOC: HO.HCS 09:18
PROVIDERS: PCP Internal Medicine; Visit Provider Nurse Practitioner Family
DX: I42.9 Cardiomyopathy, unspecified (principal); Z98.890 Other specified postprocedural states; I49.3 Ventricular premature depolarization; R06.09 Other forms of dyspnea; G47.10 Hypersomnia, unspecified
CPT/HCPCS: 99214; G2211

== ENCOUNTER → 2025-06-06 10:24 | Outpatient (REF) | payer MEDICARE, OTHER, SELFPAY ==
--- OUTSIDE RECORDS SUMMARY | 2025-05-26 11:06 | XMS_ITS ---
Author Name [facility] Organization [facility] Address [address] [place] [id number] Care Team Providers Care Evaluator Transfer Students Name Role Phone ДМИТРИЙ CABALLERO Primary Care Provider Unavail able Insurance Providers: All historical and current Section Date Range: From patient's date of to the date document was created. This section includes the names of all active insurance providers for the patient. Insurance Provider Type of Coverage Plan Name Start of Policy Coverage End of Policy Coverage Group Number Member ID Insurance Provider's Telephone Number Policy Brush's Name Patient's Relationship to Policy Brush MEDICARE (WNR) MEDICARE (M) PART B Oct 26, 2014 PART B [id number] [employer] [place] PATIENT MEDICARE (WNR) MEDICARE (M) PART B Oct 26, 2014 PART B [id number] [employer] [place] PATIENT MEDICARE (WNR) MEDICARE (M) PART A Sep 25, 2011 PART A [id number] [phone] [employer] [place] PATIENT MEDICARE (WNR) MEDICARE (M) PART A Sep 25, 2011 PART A [id number] [phone] [employer] [place] PATIENT MEDICARE (WNR) MEDICARE (M) PART A Sep 25, 2011 PART A [id number] LENAHAN,M ICHAEL PATIENT [employer] [facility]LY [facility] MEDICAL EXPENSE (OPT/PROF ) [facility] [place] [facility] N Apr 25, 2015 [id number] Santana [employer] [employer] (OPT/PROF ) [facility] [place] [facility] * Mar 26, 2015 [id number] Santana [employer] Selected Encounter This section includes the information on record at [place] for the Encounter. Date/Time Encounter Type Encounter Description Reason Pro vider Source May 26, 2025 03:06 PM Outpatient Encounter COMMUNITY CARE CONSULT IHE Encounter Template Text not used by [place] Plan of Treatment: Future Appointments (+ 6 months) and Future Tests (+/- 45 days) The Plan of Treatment section includes future care activities for the patient from all [place] treatmentfacilities. This section includes future appointments and future orders which are active, pending or scheduled. Future Appointments This section includes appointments that were scheduled to occur 6 months from the date of the Encounter, up to a maximum of 20 appointments. The data comes from all [place] treatment facilities. Appointment Date/Time Appointment Type Appointme nt Facility Name Aug 09, 2025 11:00 AM AMBULATORY - PSYCHIATRY [facility] Aug 10, 2025 11:00 AM AMBULATORY - MEDICINE [facility] Active, Pending, and Scheduled Orders This section includes a listing of several types of active, pending, and scheduled orders, including clinic medications orders, diagnostic test orders, procedure orders and consult orders; where the start date of the order is 45 days before the date of the Encounter or 45 days after the date of theEncounter. The data comes from all [place] treatment facilities. Test Date/Time Test Type Test Details Facility Name May 30, 2025 01:17 PM Consult Order COMMUNITY CARE-PULMONARY Cons Quality Compliance Manager's Choice [place] [facility] Social History: Smoking Status (Most current) and Tobacco Use (All prior to encounter date) This section includes the most current, and the historical, smoking and tobacco- related health factors from the [facility] facility where the Encounter took place. Current Smoking Status This section includes the most current smoking, or tobacco-related health factor, from the [place] facility where the Encounter took place. Date/Time Current Smoking Status April erwin Jan 12, 2023 11:37 AM [place]-TOBACCO NEVER USED [facility] Tobacco Use History This section includes a history of the smoking, or tobacco-related health factors, that were collected on or before the date of the Encounter. The data comes from the [place] facility where the Encounter took place. Date/Time Smoking Status/Tobacco Use Comment Merrick ag Jan 13, 2022 08:58 AM [facility]-TOBACCO NEVER USED [facility] Advance Directives: All historical and current Section Date Range: From patient's date of to the date document was created. This section includes ALL of a patient's completed or amended [place] Advance and Rescinded Directives. The entries below indicate that a directive exists for the patient, but an actual copy is not included with this document. The data comes from all [place] facilities. Date Advance Directives Provider Source Oct 13, 2007 ADVANCE DIRECTIVE SILVIA NAVARRO Encounter Notes: All associated encounter notes This section contains the clinical notes associated to the Encounter. Date/Time Encounter Note(s) Provider Source May 26, 2025 03:06 PM NONVA NOTE: LOCAL TITLE: COMMUNITY CARE-REQUEST FOR SERVICE NOTE STANDARD TITLE: NONVA NOTE DATE OF NOTE: MAY 26, 2025@15:06 ENTRY DATE: MAY 26, 2025@15:06:49 AUTHOR: BERNADINE BOWERS EXP COSIGNER: URGENCY: STATUS: COMPLETED COMMUNITY CARE-REQUEST FOR SERVICE NOTE Has ADDENDA Community Care Consult: COMMUNITY CARE-PULMONARY Consult No: [id number] Care Requested:continuation of service, appt on 06/07 at 10 AM dx of COPD ICD-10 Dx code: J44.9 Date VA received request: Apr Date service required: May [facility] [address] [place] [address] [place] [address] [facility] p [phone] F [phone] appt on 06/07 aT 10 AM *alert to PACT to enter new CC pulm consult Thank you /mary/ BERNADINE BOWERS Community Care RN Signed: 05/26/2025 15:10 Receipt Acknowledged By: 05/30/2025 10:35 /mary/ BLAIR LEZAMA RN REGISTERED NURSE 05/30/2025 ADDENDUM STATUS: COMPLETED Consult placed and awaiting PCP's signature. /mary/ BLAIR LEZAMA RN REGISTERED NURSE Signed: 05/30/2025 10:35 BERNADINE BOWERS [facility]
--- NOTE | 2025-06-06 10:27 | HM_ITS ---
* Total monitoring time 7 days. * Underlying rhythm is sinus with an average rate of 75/Min. * Frequent supraventricular ectopy with a burden of 2.1%. * Frequent ventricular ectopy with a burden of 17.7%. Evidence of couplets, triplets. Longest run 5 beats. * No significant pauses or high-grade AV blocks. * Shortness of breath, fast heartbeat, throbbing on the left side, chest pressure, tightness correlates with ventricular ectopy. MTDD
== END ==
LOC: HO.CARD 10:24
PROVIDERS: PCP Internal Medicine; Visit Provider Internal Medicine Cardiovascular Disease
DX: I49.3 Ventricular premature depolarization (principal)
CPT/HCPCS: 93242; 99212

== ENCOUNTER 2025-06-07 11:12 | Outpatient (AMB) | payer MEDICARE, OTHER, SELFPAY ==
[2025-06-07 11:14] VITALS: BP 104/60; PULSE 76; O2SAT 100; BMI 29.9
--- NOTE | 2025-06-07 11:14 | MHC.OFFVIS ---
Vital Signs 06/07/25 11:14 Height 6 ft Weight 220 lb 7.396 oz BMI 29.9 BP 104/60 Blood Pressure Location Lt brachial Position Sitting Pulse 76 Pulse Source Pulse Oximeter Pulse Oximetry (%) 100 Oxygen Delivery Method Room Air Intake Visit Reasons: COPD Piling Cutter Required: No Accompanied by: spouse Allergies No Known Allergies Allergy (Verified 06/07/25 11:18) HPI Comments Details: The patient is a 79-year-old gentleman with a known history of COPD who apparently has been complaining of worsening dyspnea on exertion. Moderate severity. Typically sometimes he developed some shortness of breath even at rest. He had been on Symbicort and also Spiriva with good response. [facility] is no longer available. He was given a sample of Breztri. But, resulted in chest discomfort. Therefore he stopped it. [place] back [place] Wix[place]. However after his reaction to the previous inhaler he opted on waiting the visit to figure if he should started. Patient does describe increasing shortness of breath. Denies any chest pains. Denies any chest congestion. He did go for 6 minutes walk test in the office where he did not demonstrate any desaturation. He denies any chest pains or palpitations during the 6 minutes walk test. The patient will undergo additional testing at this time. 10/30/2021 the patient is here for a pulmonary follow-up visit. Overall the patient has been doing well. He was not able to start the Spiriva because it was no longer covered through the [place]. He has been taking Wixela twice a day. In the meantime the patient did have a chest x-ray done back in June 2021 and I personally reviewed. Appears to have some slight persistent parenchymal disease in the left base. This is minimal. This is unchanged from previous x-rays. The patient did have pulmonary function studies which were personally by me. No evidence of any obstructive nor restrictive ventilatory defects. However, the patient does have a mild diffusion impairment. The patient does try to stay busy. However, his family is concerned about his dyspnea symptoms. I reassured him explaining to him that his lung capacity good. He should continue exercising regularly. Patient also should continue with weight loss as he has been doing. Will plan to follow-up sometime in the fall with repeat chest x-ray. 07/01/2022 the patient is here for a pulmonary follow-up visit. Patient is doing well on his current therapy which includes Wixela and Spiriva. He has a rescue inhaler but does not required often. The patient did have a chest x-ray today which we personally reviewed. He does have a slight elevation of the right hemidiaphragm and some crowding on the right side. Will have him repeat his chest x-ray with the next follow-up in 6 months. In the meantime he continues using the trazodone with good effect at nighttime. He has also continued to use singular. He did recover from COVID 19 about a month ago. He is doing well. No residual symptoms noted. 07/14/2023 the patient is here for pulmonary follow-up visit. The patient continues to do fairly well from a respiratory status. He is responding well to 2 weeks along the Spiriva. In the meantime he did undergo a cardiac evaluation which was reassuring for the patient. He still continues to have the elevation in right hemidiaphragm. He started developing some right-sided right upper quadrant discomfort. Primarily worsened by certain movements. He has been upset because he had been able to chop wood for winter. He did undergo CT scan of the abdomen and pelvis. I did review the area. The lung windows appear to be stable. He has been treated for a musculoskeletal issue at this time. He is trying to stay away from the Western medicines and trying a more holistic approach. Is going to start acupuncture. I did tell about considering turmeric as an anti-inflammatory agent forthright. Otherwise is doing well from a respiratory status will follow-up in a year's time. If he develops any worsening symptoms he will call for a sooner appointment. 12/07/2024 the patient is here for a pulmonary follow-up visit. The patient has been shortness breath. He was short of breath over the fall and did require a course of prednisone. [facility] Lately has not been able to get all the medications. Today she will be receiving his Wixela Spiriva and hopefully also the albuterol for his nebulizer [place] request from [place]. Meantime he does have some diminished breath sounds no significant wheezing but does have prolonged expiratory phase. We did go for brief walking oximetry his oxygen was excellent. Did have a cardiac workup which is also reassuring including a cardiac stress test prior report of the patient. He was told that he is okay. Again I do not have those reports myself. In the meantime will have him get an x-ray to try to find an explanation for his dyspnea symptoms. If it is abnormal will consider getting a CT scan. Otherwise patient continues to work on his weight loss which is been going well. Will get him optimized with respiratory medications and will plan to have him come back in 3 months PFTs. 03/08/2025 the patient is here for a pulmonary follow-up visit. Overall the patient complains about shortness of breath. Even with minimal activity he feels very winded. Specially when going up a flight of stairs. His oxygens always perfect. He has respiratory medications include Wixela and Spiriva. It may be that he is not adequately administering the medications. He does better with the nebulizer. Will go ahead and start him on budesonide and he can use it along with the DuoNeb. I did write him on some instructions on how to do it appropriately. If he feels better he can always wean off the Wixela. But, he did undergo pulmonary function studies and he did have a reversible obstruction although partially reversible. In addition, he did have a chest x-ray which I personally reviewed demonstrating no acute disease. So I do believe that he does need additional bronchodilator therapy. Still though it is out of proportion to the degree of shortness of breath that he has. Will be reasonable to have a cardiac workup. Will go ahead and request a repeat EKG specially since he had a sinus arrhythmia during the last 1 and a left bundle branch block. Will also request an echocardiogram and also referral to Cardiology so we can see about getting a stress test or a CT angio of the coronary arteries. For now will maximize his. He will follow-up with cardiology and will follow-up with him in about 3-4 months. 06/07/2025 the patient is here for a pulmonary follow-up visit. Overall the patient has been doing better. He is following closely with Cardiology. He did undergo a cardiac catheterization demonstrating no ischemic cardiomyopathy which is reassuring. He is having multiple PVCs and currently has a Holter monitor him being monitor for that. He will continue to follow closely with Cardiology. For now though he continue with his respiratory therapy as he is tolerating the nebulized therapy very well. He does have daytime drowsiness with an elevated Hartford score of 11/24. In view of his cardiac arrhythmias in addition to cardiomyopathy the patient will benefit from a sleep study an in-lab setting to better assess him for sleep apnea in any sleep related disorders. The patient will follow-up afterwards. In the meantime he is going to continue to exercise regularly. Also talked about CPT with the Acapella valve to help him with mucus clearance and also strengthening of the airways. If any issues arise he can always call for further recommendations. [facility] Medical History Tachyarrhythmia Asthma Dyspnea COPD (chronic obstructive pulmonary disease) Surgical History History of cardiac cath Family History Father Heart attack Paternal Grandfather Heart attack Social History (Reviewed 06/07/25 @ 11:19 by Wilma Saldaña [facility]) Unable to assess alcohol history related to: Unable to respond Patient Tobacco Use Status: Never used Tobacco Review of Systems Const Denies chills, Reports difficulty sleeping, Denies fatigue, Denies fever(s), Reports snoring, Reports stops breathing during sleep, Denies weight gain and Denies weight loss ENT Denies dizziness, Denies lip swelling and Denies tongue swelling Card Denies chest pain, Denies leg edema, Denies lightheadedness, Denies palpitations, Reports dyspnea on exertion, Denies orthopnea and Denies other Resp Reports cough, Reports dyspnea on exertion, Reports snoring and Reports wheezing GI Denies hematochezia and Denies change in stool character Musc Denies abnormal gait, Denies muscle weakness, Denies numbness, Denies radiating pain into limb and Denies tingling Neuro Denies abnormal gait, Denies dizziness, Denies numbness and Denies tingling Psych Denies no additional complaints Endo Denies fatigue and Denies palpitations Vern/Lymph Denies easy bleeding and Denies lymphadenopathy Aller/Immun Denies lip swelling, Denies tongue swelling and Reports wheezing Physical Exam Vital Signs: Last Vital Signs Pulse 76 06/07/25 11:14 BP 104/60 06/07/25 11:14 Pulse Ox 100 06/07/25 11:14 Oxygen Delivery Method Room Air 06/07/25 11:14 BMI result Body Mass Index 29.9 Const General: alert Neck Neck: Yes normal visual inspection, Yes full ROM and Yes no lymphadenopathy Chest Chest palpation & inspection: normal inspection of the chest Resp Effort & Inspection: normal respiratory effort Auscultation: no rales, no rhonchi, wheezes and diminished lung sounds Cardio Rate: regular rate Rhythm: regular rhythm Heart sounds: S1 normal heart sound present and S2 normal heart sound present GI Palpation (GI): Soft to palpation and nontender Auscultation: normal bowel sounds General: Yes no CVA tenderness Back/Spine/Pelvis Back: no CVA tenderness Skin General skin exam: rashes and/or lesions noted Assessment & Plan Assessment & Plan (1) COPD (chronic obstructive pulmonary disease): Code(s): J44.9 - Chronic obstructive pulmonary disease, unspecified Category: Medical Qualifiers: COPD type: chronic bronchitis Chronic bronchitis type: simple Qualified Code(s): J41.0 - Simple chronic bronchitis (2) Dyspnea: Code(s): R06.00 - Dyspnea, unspecified Category: Medical Qualifiers: Dyspnea type: dyspnea on exertion Qualified Code(s): R06.09 - Other forms of dyspnea (3) Asthma: Code(s): J45.909 - Unspecified asthma, uncomplicated Category: Medical Qualifiers: Asthma complication type: uncomplicated Asthma persistence: persistent Asthma severity: moderate Qualified Code(s): J45.40 - Moderate persistent asthma, uncomplicated (4) Tachyarrhythmia: Code(s): R00.0 - Tachycardia, unspecified Category: Medical (5) ANNA (obstructive sleep apnea): Code(s): G47.33 - Obstructive sleep apnea (adult) (pediatric) Category: Medical Plan stopped Spiriva stopped Wixella KRISTI as needed continue Duonebs continue Budesonide in lab PSG Would benefit from pulmonary rehab F/U 3-4 months Orders: Orders RT PSG in-lab sleep study Today G47.33 - Obstructive sleep apnea (adult) (pediatric) Coding Level of Care Code Est Pt Level 4 (08625) Complex EM visit Add On G2211 Diagnoses Simple chronic bronchitis J41.0 COPD type: chronic bronchitis Chronic bronchitis type: simple Dyspnea on exertion R06.09 Dyspnea type: dyspnea on exertion Moderate persistent asthma without complication J45.40 Asthma complication type: uncomplicated Asthma persistence: persistent Asthma severity: moderate Tachyarrhythmia R00.0 ANNA (obstructive sleep apnea) G47.33 Time Spent (min) 17
--- OUTSIDE RECORDS SUMMARY | 2025-06-07 12:13 | XMS_ITS | Clinical Summary ---
Author Organization [facility] Address [address] [address] Phone Care Team Providers Care Brick Dropper Name Role Phone Sathya Herzog MD Primary Care Provider [phone] Allergies No known active allergies Medications valsartan [...] this topic Medical Devices Implanted Type Area Plate Driller Device Identifier Shelf Expiration Date Model / Serial / Lot [place] Suture 19.1x4.75mm Arthroscopy Swivelock Biocomposite Vented Closed Eyelet Pk/5ea - [id number] Implanted:Qty: 1 on 06/05/2020 by Christen Wills MD at [facility] Right: Shoulder ARTHREX 03/25/2024 AR-2324BC C / / [place] Suture 19.1x4.75mm Arthroscopy Swivelock Biocomposite Vented Closed Eyelet Pk/5ea - [id number] Implanted:Qty: 1 on 06/05/2020 by Christen Wills MD at [facility] Right: Shoulder ARTHREX 03/25/2024 AR-2324BC C / / [id number] [place] Suture 19.1x4.75mm Vented Closed Eyelet Fibertape Loop Swivelock Biocomposite - [id number] Implanted:Qty: 1 on 06/05/2020 by Christen Wills MD at [facility] Right: Shoulder ARTHREX 02/23/20[address] AR-[address] / / [id number] [place] Suture 4.75x19.1mm Arthroscopy Swivelock Biocomposite Vented Closed Eyelet Tigertape Loop - [id number] Implanted:Qty: 1 on 06/05/2020 by Christen Wills MD at [facility] STANDARD Right: Shoulder ARTHREX 09/24/2023 AR-2324BC CTT / / [id number] Insurance MEDICARE PART A & B Member Subscriber Plan / Payer (Ef fective 2014-Present) Name:Yassine Sharpe Member ID:[id number] Relation to Subscriber:Self Name:AshishYassine dillard Subscriber ID:[id number] Payer ID:[id number] Group ID:Not on file Type:Medicare Address: [facility] [employer] [facility] [id number] [place] [address] [facility] MEDICARE SUPPLEMENT Care Teams Brick Dropper Relationship Specialty Start Date End Date Sathya Herzog MD [address] [address] PCP - General Internal Medicine 3/31/20 Additional Source Comments The information contained in this document represents components of the legal health record. It is not the complete legal health record.[facility]
--- OUTSIDE RECORDS SUMMARY | 2025-06-07 12:13 | XMS_ITS | Clinical Summary ---
Author Organization [facility] Address [address] [place] [address] Phone Care Team Providers Care Sheep Farm Manager Name Role Phone Tj Torres MD Primary Care Provider [phone] Allergies No known active allergies Medications omeprazole [...] DX:Asthma COPD (chronic obstructive pu lmonary disease) ([facility] V24, [facility] V28) DX:COPD (chronic o bstructive pulmonary disease) ([facility]) Hypertension DX:Hypertension Drug ingestion DX:Drug ingestio n Cancer ([facility] V24, [facility] V28) DX:Cancer ([facility]);COMMENT:bladder Depression GERD (gastroesophageal reflux disease) Family History [...] Maintenance Results * COLONOSCOPY Anesthesia - MAC; [facility] ENDOSCOPY (09/14/2024 9:05 AM EST) [...] pathology results. Narrative 09/14/2024 9:07 AM EST [facility] GI Patient Name: Yassine Sharpe Procedure [...] not prolapse). Procedure Code(s): --- Professional --- 34438, Colonoscopy, flexible; with removal of tumor(s), polyp(s), or other lesion(s) by snare technique Diagnosis Code(s): --- Professional --- Z86.010, Personal history of colonic polyps D12.2, Benign neoplasm of ascending colon D12.3, Benign neoplasm of transverse colon (hepatic flexure or splenic flexure) D12.4, Benign neoplasm of descending colon CPT copyright 2020 [employer]. All rights reserved. The codes documented in this report are preliminary and upon executive marketing assistant review may be revised to meet current compliance requirements. Yanni Qiu MD 09/14/2024 9:07:18 AM This report has been signed electronically.Yanni Qiu MD Number of Addenda: 0 Note Initiated On: 09/14/2024 8:30 AM Scope In: Scope Out: Endoscopy Department at [facility] - [address] [place] [id number] Procedure Note Yanni Qiu MD - 09/14/2024 [facility] GI Patient Name: Yassine Sharpe Procedure Date: 09/14/2024 8:30 AM Date of : 1945 Age: 78 Gender: Male Note Status: Finalized Attending MD: Ynani Qiu MD, Procedure Date No Time: 09/14/2024 [...] not prolapse). Procedure Code(s): --- Professional --- 91131, Colonoscopy, flexible; with removal of tumor(s), polyp(s), or other lesion(s) by snare technique Diagnosis Code(s): --- Professional --- Z86.010, Personal history of colonic polyps D12.2, Benign neoplasm of ascending colon D12.3, Benign neoplasm of transverse colon (hepatic flexure or splenic flexure) D12.4, Benign neoplasm of descending colon CPT copyright 2020 [employer]. All rights reserved. The codes documented in this report are preliminary and upon executive marketing assistant reviewmay be revised to meet current compliance requirements. Yanni Qiu MD 09/14/2024 9:07:18 AM This report has been signed electronically.Yanni Qiu MD Number of Addenda: 0 Note Initiated On: 09/14/2024 8:30 AM Scope In: Scope Out: Endoscopy Department at [facility] - [address] [place] [id number] IMPRESSION: - The examined portion of the [...] Recently Relevant to Health Maintenance Insurance MEDICARE [facility] Care Teams Sheep Farm Manager Relationship Specialty Start Date End Date Tj Torres MD [facility] [place] [address] PCP - General Internal Medicine 09/12/24
--- OUTSIDE RECORDS SUMMARY | 2025-06-07 12:13 | XMS_ITS | Clinical Summary ---
Author Organization [facility] Address [address] [place] [address] Care Team Providers Care Stock Fitter Name Role Phone Sathya Herzog MD Primary Care Provider [phone] Allergies No known active allergies Medications Medication [...] age to complete this topic Care Teams Stock Fitter Relationship Specialty Start Date End Date Sathya Herzog MD [address] [address] PCP - General Internal Medicine 11/29/19
== END 2025-06-07 11:54 | disposition home or self-care (01) ==
LOC: HO.HPS 11:13
PROVIDERS: PCP Internal Medicine; Visit Provider Hospitalist
DX: J41.0 Simple chronic bronchitis (principal); R06.09 Other forms of dyspnea; J45.40 Moderate persistent asthma, uncomplicated; R00.0 Tachycardia, unspecified; G47.33 Obstructive sleep apnea (adult) (pediatric)
CPT/HCPCS: 99214; G2211

== ENCOUNTER → 2025-06-07 11:12 | Outpatient (BNVA) | payer MEDICARE, OTHER, SELFPAY | PROVIDERS: PCP Internal Medicine; Visit Provider Hospitalist | DX: J41.0 Simple chronic bronchitis (principal); R06.09 Other forms of dyspnea; J45.40 Moderate persistent asthma, uncomplicated; R00.0 Tachycardia, unspecified; G47.33 Obstructive sleep apnea (adult) (pediatric) | CPT/HCPCS: 99212 ==

== ENCOUNTER → 2025-07-13 20:30 | Outpatient (REF) | payer MEDICARE, OTHER, SELFPAY ==
--- OUTSIDE RECORDS SUMMARY | 2025-07-13 21:08 | XMS_ITS | Clinical Summary ---
Author Organization [facility] Address [address] [place] [address] Care Team Providers Care Fraud Prevention Analyst Name Role Phone Aleksandar Easley MD Primary [...] 2011 BMI CHECK/ADVISE 10/26/2024 09/23/2018, 02/15/2018 INFLUENZA (#1) 2025 09/23/2018 Care Teams Fraud Prevention Analyst Relationship Specialty Start Date End Date Aleksandar Easley MD PCP - General Cardiovascular Disease 02/15/18
--- OUTSIDE RECORDS SUMMARY | 2025-07-13 21:08 | XMS_ITS | Clinical Summary ---
Author Organization [facility] Address [address] [address] Phone Care Team Providers Care Arboriculturist Name Role Phone Sathya Herzog MD Primary Care Provider [phone] Allergies No known active allergies Medications valsartan [...] 10/04/2016 10/04/2015 ZOSTER VACCINES (3 of 3) 09/03/2020 07/09/2020, 04/26 RSV VACCINE (1 - 1-dose 75+ series) 2021 INFLUENZA VACCINE (#1) 2025 , 07/28/2019, 09/23/2018, Additional history exists COVID-19 VACCINE ( - season) 2025 01/01/2021, 12/04/2020 SMOKING STATUS SCREENING (Once After 26 Yrs) Completed 01/28/2021 HEPATITIS A [...] this topic Medical Devices Implanted Type Area Field Talent Qualification Specialist Device Identifier Shelf Expiration Date Model / Serial / Lot [place] Suture 19.1x4.75mm Arthroscopy Swivelock Biocomposite Vented Closed Eyelet Pk/5ea - [id number] Implanted:Qty: 1 on 06/05/2020 by Christen Wills MD at [facility] Right: Shoulder ARTHREX 03/25/2024 AR-2324BC C / / [place] Suture 19.1x4.75mm Arthroscopy Swivelock Biocomposite Vented Closed Eyelet Pk/5ea - [id number] Implanted:Qty: 1 on 06/05/2020 by Christen Wills MD at [facility] Right: Shoulder ARTHREX 03/25/2024 AR-2324BC C / / [id number] [place] Suture 19.1x4.75mm Vented Closed Eyelet Fibertape Loop Swivelock Biocomposite - [id number] Implanted:Qty: 1 on 06/05/2020 by Christen Wills MD at [facility] STANDARD Right: Shoulder ARTHREX 02/23/2024 AR-[address] / / [id number] [place] Suture 4.75x19.1mm Arthroscopy Swivelock Biocomposite Vented Closed Eyelet Tigertape Loop - [id number] Implanted:Qty: 1 on 06/05/2020 by Christen Wills MD at [facility] STANDARD Right: Shoulder ARTHREX 09/24/2023 AR-2324BC CTT / / [id number] Insurance MEDICARE PART A & B [facility] MEDICARE SUPPLEMENT Care Teams Arboriculturist Relationship Specialty Start Date End Date Sathya Herzog MD [address] [address] PCP - General Internal Medicine 01/24/20 Additional Source Comments The information contained in this document represents components of the legal health record. It is not the complete legal health record.[facility]
--- OUTSIDE RECORDS SUMMARY | 2025-07-13 21:08 | XMS_ITS | Encounter Summary ---
Author Organization [facility] Address [address] [employer] [facility] [address] [place] [address] Phone Care Team Providers Care Steel Fabricating Supervisor Name Role Phone Sathya Herzog MD Primary Care Provider [phone] Encounter Details Date Type Department Care Team (Late st Contact Info) Description 06/05/2020 Procedure Pass [facility] @ [address] [address] Social History Tobacco Use Types Packs/Day Years [...] Orientation Straight 02/25/2020 9: 05 AM EDT documented as of this encounter Plan of Treatment Not on file documented as of this encounter Visit Diagnoses Not on filedocumented in this encounter Care Teams Steel Fabricating Supervisor Relationship Specialty Start Date End Date Sathya Herzog MD [address] [address] PCP - General Internal Medicine 01/24/20 documented as of this encounter Additional Source Comments The information contained in this document represents components of the legal health record. It is not the complete legal health record.[facility]
--- OUTSIDE RECORDS SUMMARY | 2025-07-13 21:08 | XMS_ITS | Clinical Summary ---
Author Organization [facility] Address [address] [place] [address] Care Team Providers Care Swedger Name Role Phone Sathya Herzog MD Primary Care Provider [phone] Allergies No known active allergies Medications Medication [...] age to complete this topic Care Teams Swedger Relationship Specialty Start Date End Date Sathya Herzog MD [address] [address] PCP - General Internal Medicine 11/29/19
== END ==
LOC: HO.SL 20:30
PROVIDERS: PCP Internal Medicine; Visit Provider Hospitalist
DX: G47.33 Obstructive sleep apnea (adult) (pediatric) (principal)
CPT/HCPCS: 95810

== ENCOUNTER → 2025-07-13 21:09 | Outpatient (BNV) | payer MEDICARE, OTHER, SELFPAY | PROVIDERS: PCP Internal Medicine; Visit Provider Internal Medicine | DX: G47.33 Obstructive sleep apnea (adult) (pediatric) (principal); G47.61 Periodic limb movement disorder | CPT/HCPCS: 95810 ==

== ENCOUNTER 2025-09-13 10:00 | Outpatient (AMB) | payer MEDICARE, OTHER, SELFPAY ==
--- NOTE | 2025-09-13 10:05 | A.OFFVIS_ITS ---
Vital Signs 09/13/25 10:06 Height 6 ft Weight 218 lb 4.122 oz BMI 29.6 BP 134/68 Blood Pressure Location Lt brachial Position Sitting Pulse 62 Pulse Source Pulse Oximeter Pulse Oximetry (%) 98 Oxygen Delivery Method Room Air Intake Visit Reasons: copd Shipping Associate Required: No Accompanied by: Spouse Allergies No Known Allergies Allergy (Verified 09/13/25 10:10) HPI Comments Details: The patient is a 79-year-old gentleman with a known history of COPD who apparently has been complaining of worsening dyspnea on exertion. Moderate severity. Typically sometimes he developed some shortness of breath even at rest. He had been on Symbicort and also Spiriva with good response. [facility] is no longer available. He was given a sample of Breztri. But, resulted in chest discomfort. Therefore he stopped it. Will back to the [place] he got a prescription of Wixela. However after his reaction to the previous inhaler he opted on waiting the visit to figure if he should started. Patient does describe increasing shortness of breath. Denies any chest pains. Denies any chest congestion. He did go for 6 minutes walk test in the office where he did not demonstrate any desaturation. He denies any chest pains or palpitations during the 6 minutes walk test. The patient will undergo additional testing at this time. 10/30/2021 the patient is here for a pulmonary follow-up visit. Overall the patient has been doing well. He was not able to start the Spiriva because it was no longer covered through the [place]. He has been taking Wixela twice a day. In the meantime the patient did have a chest x-ray done back in June 2021 and I personally reviewed. Appears to have some slight persistent parenchymal disease in the left base. This is minimal. This is unchanged from previous x- rays. The patient did have pulmonary function studies which were personally by me. No evidence of any obstructive nor restrictive ventilatory defects. However, the patient does have a mild diffusion impairment. The patient does try to stay busy. However, his family is concerned about his dyspnea symptoms. I reassured him explaining to him that his lung capacity good. He should continue exercising regularly. Patient also should continue with weight loss as he has been doing. Will plan to follow-up sometime in the fall with repeat chest x-ray. 07/01/2022 the patient is here for a pulmonary follow-up visit. Patient is doing well on his current therapy which includes Wixela and Spiriva. He has a rescue inhaler but does not required often. The patient did have a chest x-ray today which we personally reviewed. He does have a slight elevation of the right hemidiaphragm and some crowding on the right side. Will have him repeat his chest x-ray with the next follow-up in 6 months. In the meantime he continues using the trazodone with good effect at nighttime. He has also continued to use singular. He did recover from COVID 19 about a month ago. He is doing well. No residual symptoms noted. 07/14/2023 the patient is here for pulmonary follow-up visit. The patient continues to do fairly well from a respiratory status. He is responding well to 2 weeks along the Spiriva. In the meantime he did undergo a cardiac evaluation which was reassuring for the patient. He still continues to have the elevation in right hemidiaphragm. He started developing some right-sided right upper quadrant discomfort. Primarily worsened by certain movements. He has been upset because he had been able to chop wood for winter. He did undergo CT scan of the abdomen and pelvis. I did review the area. The lung windows appear to be stable. He has been treated for a musculoskeletal issue at this time. He is trying to stay away from the Western medicines and trying a more holistic approach. Is going to start acupuncture. I did tell about considering turmeric as an anti-inflammatory agent forthright. Otherwise is doing well from a respiratory status will follow-up in a year's time. If he develops any w orsening symptoms he will call for a sooner appointment. 12/07/2024 the patient is here for a pulmonary follow-up visit. The patient has been shortness breath. He was short of breath over the fall and did require a course of prednisone. [facility] Lately has not been able to get all the medications. Today she will be receiving his Wixela Spiriva and hopefully also the albuterol for his nebulizer also request from the [place] pharmacy. Meantime he does have some diminished breath sounds no significant wheezing but does have prolonged expiratory phase. We did go for brief walking oximetry his oxygen was excellent. Did have a cardiac workup which is also reassuring including a cardiac stress test prior report of the patient. He was told that he is okay. Again I do not have those reports myself. In the meantime will have him get an x-ray to try to find an explanation for his dyspnea symptoms. If it is abnormal will consider getting a CT scan. Otherwise patient continues to work on his weight loss which is been going well. Will get him optimized with respiratory medications and will plan to have him come back in 3 months PFTs. 03/08/2025 the patient is here for a pulmonary follow-up visit. Overall the patient complains about shortness of breath. Even with minimal activity he feels very winded. Specially when going up a flight of stairs. His oxygens always perfect. He has respiratory medications include Wixela and Spiriva. It may be that he is not adequately administering the medications. He does better with the nebulizer. Will go ahead and start him on budesonide and he can use it along with the DuoNeb. I did write him on some instructions on how to do it appropriately. If he feels better he can always wean off the Wixela. But, he did undergo pulmonary function studies and he did have a reversible obstruction although partially reversible. In addition, he did have a chest x-ray which I personally reviewed demonstrating no acute disease. So I do believe that he does need additional bronchodilator therapy. Still though it is out of proportion to the degree of shortness of breath that he has. Will be reasonable to have a cardiac workup. Will go ahead and request a repeat EKG specially since he had a sinus arrhythmia during the last 1 and a left bundle branch block. Will also request an echocardiogram and also referral to Cardiology so we can see about getting a stress test or a CT angio of the coronary arteries. For now will maximize his. He will follow-up with cardiology and will follow-up with him in about 3-4 months. 06/07/2025 the patient is here for a pulmonary follow-up visit. Overall the patient has been doing better. He is following closely with Cardiology. He did undergo a cardiac catheterization demonstrating no ischemic cardiomyopathy which is reassuring. He is having multiple PVCs and currently has a Holter monitor him being monitor for that. He will continue to follow closely with Cardiology. For now though he continue with his respiratory therapy as he is tolerating the nebulized therapy very well. He does have daytime drowsiness with an elevated [place] score of 11/24. In view of his cardiac arrhythmias in addition to cardiomyopathy the patient will benefit from a sleep study an in-lab setting to better assess him for sleep apnea in any sleep related disorders. The patient will follow-up afterwards. In the meantime he is going to continue to exercise regularly. Also talked about CPT with the Acapella valve to help him with mucus clearance and also strengthening of the airways. If any issues arise he can always call for further recommendations. 09/13/2025 the patient is here for pulmonary follow-up visit. Overall the patient is doing okay. Continues to have shortness of breath with activity. Likely multifactorial. The patient is following closely with Cardiology. In addition to that the patient does have elevated [place] score with a daytime drowsiness score of 11/24. He did undergo an in-lab sleep study. We did review the results. Appears that he does have some mild degree of sleep apnea even with a limited study since he has spent a lot of time awake. Based on his cardiovascular risk factors the patient needs to start PAP therapy at this time. Will go ahead and start with a local DME company. In the meantime the patient continues uses respiratory therapy as prescribed. Based on the fact that he continues to be symptomatic I do believe the patient will benefit from a PD4 inhibitor. Will go ahead and add a small dose of Daliresp to his regimen to treat his chronic bronchitis and exacerbations. If he does tolerate the low dose of 250 mcg he can always call and I can increase the dose to the 500 mcg. If he does not tolerate the pill we can always consider nebulized therapy. The patient does have a cardiology follow-up soon. To further evaluate his cardiovascular component. In the meantime I will send a prescription to the [employer] company to start the PAP therapy. [facility] Medical History Tachyarrhythmia Asthma Dyspnea COPD (chronic obstructive pulmonary disease) Surgical History History of cardiac cath Family History Father Heart attack Paternal Grandfather Heart attack Social History Patient Tobacco Use Status: Never used Tobacco Review of Systems Const Denies chills, Reports difficulty sleeping, Denies fatigue, Denies fever(s), Reports snoring, Reports stops breathing during sleep, Denies weight gain and Denies weight loss ENT Denies dizziness, Denies lip swelling and Denies tongue swelling Card Denies chest pain, Denies leg edema, Denies lightheadedness, Denies palpitations, Reports dyspnea on exertion, Denies orthopnea and Denies other Resp Reports cough, Reports dyspnea on exertion, Reports snoring and Reports wheezing GI Denies hematochezia and Denies change in stool character Musc Denies abnormal gait, Denies muscle weakness, Denies numbness, Denies radiating pain into limb and Denies tingling Neuro Denies abnormal gait, Denies dizziness, Denies numbness and Denies tingling Psych Denies no additional complaints Endo Denies fatigue and Denies palpitations Vern/Lymph Denies easy bleeding and Denies lymphadenopathy Aller/Immun Denies lip swelling, Denies tongue swelling and Reports wheezing Physical Exam Vital Signs: Last Vital Signs Pulse 62 09/13/25 10:06 BP 134/68 09/13/25 10:06 Pulse Ox 98 09/13/25 10:06 Oxygen Delivery Method Room Air 09/13/25 10:06 BMI result Body Mass Index 29.6 Const General: alert Neck Neck: Yes normal visual inspection, Yes full ROM and Yes no lymphadenopathy Chest Chest palpation & inspection: normal inspection of the chest Resp Effort & Inspection: normal respiratory effort Auscultation: no rales, no rhonchi, no wheezes and diminished lung sounds Cardio Rate: regular rate Rhythm: regular rhythm Heart sounds: S1 normal heart sound present and S2 normal heart sound present GI Palpation (GI): Soft to palpation and nontender Auscultation: normal bowel sounds General: Yes no CVA tenderness Back/Spine/Pelvis Back: no CVA tenderness Skin General skin exam: rashes and/or lesions noted Assessment & Plan Assessment & Plan (1) COPD (chronic obstructive pulmonary disease): Code(s): J44.9 - Chronic obstructive pulmonary disease, unspecified Category: Medical Qualifiers: COPD type: chronic bronchitis Chronic bronchitis type: simple Qualified Code(s): J41.0 - Simple chronic bronchitis (2) Dyspnea: Code(s): R06.00 - Dyspnea, unspecified Category: Medical Qualifiers: Dyspnea type: dyspnea on exertion Qualified Code(s): R06.09 - Other forms of dyspnea (3) Asthma: Code(s): J45.909 - Unspecified asthma, uncomplicated Category: Medical Qualifiers: Asthma complication type: uncomplicated Asthma persistence: persistent Asthma severity: moderate Qualified Code(s): J45.40 - Moderate persistent asthma, uncomplicated (4) Tachyarrhythmia: Code(s): R00.0 - Tachycardia, unspecified Category: Medical (5) ANNA (obstructive sleep apnea): Code(s): G47.33 - Obstructive sleep apnea (adult) (pediatric) Category: Medical Plan Spiriva Wixella KRISTI as needed start Daliresp start APAP therapy Would benefit from pulmonary rehab F/U 3-4 months Medications: New roflumilast (Daliresp) 250 mcg PO DAILY 30 tabs 11RF 30 days J44.9 - Chronic obstructive pulmonary disease, unspecified Coding Level of Care Code Est Pt Level 4 (61917) Complex EM visit Add On G2211 Diagnoses Simple chronic bronchitis J41.0 COPD type: chronic bronchitis Chronic bronchitis type: simple Dyspnea on exertion R06.09 Dyspnea type: dyspnea on exertion Moderate persistent asthma without complication J45.40 Asthma complication type: uncomplicated Asthma persistence: persistent Asthma severity: moderate Tachyarrhythmia R00.0 ANNA (obstructive sleep apnea) G47.33 Time Spent (min) 17
[2025-09-13 10:06] VITALS: BP 134/68; PULSE 62; O2SAT 98; BMI 29.6
--- OUTSIDE RECORDS SUMMARY | 2025-09-13 18:51 | XMS_ITS | Clinical Summary ---
Author Organization [facility] Address [address] [address] Phone Care Team Providers Care Game Attendant Name Role Phone Sathya Herzog MD Primary Care Provider [phone] Allergies No known active allergies Medications valsartan [...] VACCINES (50+ years) (2 of 2 - PCV20 or PCV21) 10/04/2016 10/04/2015 ZOSTER VACCINES (3 of 3) 09/03/2020 07/09/2020, 04/26 RSV VACCINE (1 - 1-dose 75+ series) 2021 INFLUENZA VACCINE (#1) 2025 , 07/28/2019, 09/23/2018, Additional history exists COVID-19 VACCINE (3 - 2024- season) 2025 01/01/2021, 12/04/2020 SMOKING STATUS SCREENING [...] this topic Medical Devices Implanted Type Area Adjudication Specialist Device Identifier Shelf Expiration Date Model / Serial / Lot [place] Suture 19.1x4.75mm Arthroscopy Swivelock Biocomposite Vented Closed Eyelet Pk/5ea - [id number] Implanted:Qty: 1 on 06/05/2020 by Christen Wills MD at [facility] Right: Shoulder ARTHREX 03/25/2024 AR-2324BC C / / [place] Suture 19.1x4.75mm Arthroscopy Swivelock Biocomposite Vented Closed Eyelet Pk/5ea - [id number] Implanted:Qty: 1 on 06/05/2020 by Christen Wills MD at [facility] Right: Shoulder ARTHREX 03/25/2024 AR-2324BC C / / [id number] Byron Suture 19.1x4.75mm Vented Closed Eyelet Fibertape Loop Swivelock Biocomposite - [id number] Implanted:Qty: 1 on 06/05/2020 by Christen Wills MD at [facility] STANDARD Right: Shoulder ARTHREX 02/23/[address] / / [id number] Byron Suture 4.75x19.1mm Arthroscopy Swivelock Biocomposite Vented Closed Eyelet Tigertape Loop - [id number] Implanted:Qty: 1 on 06/05/2020 by Christen Wills MD at [facility] STANDARD Right: Shoulder ARTHREX 09/24/2023 AR-2324BC CTT / / [id number] Insurance MEDICARE PART A & B [facility] MEDIC[facility] SUPPLEMENT Care Teams Game Attendant Relationship Specialty Start Date End Date Sathya Herzog MD [address] [address] PCP - General Internal Medicine 01/24/20 Additional Source Comments The information contained in this document represents components of the legal health record. It is not the complete legal health record.[facility]
--- OUTSIDE RECORDS SUMMARY | 2025-09-13 18:51 | XMS_ITS | Clinical Summary ---
Author Organization [facility] Address [address] [place] [address] Phone Care Team Providers Care Compliance Counsel Name Role Phone Tj Torres MD Primary Care Provider [phone] Allergies No known active allergies Medications omeprazole [...] DX:Asthma COPD (chronic obstructive pu lmonary disease) ([facility] V24, [facility] V28) DX:COPD (chronic o bstructive pulmonary disease) ([facility]) Hypertension DX:Hypertension Drug ingestion DX:Drug ingestio n Cancer ([facility] V24, [facility] V28) DX:Cancer ([facility]);COMMENT:bladder Depression GERD (gastroesophageal reflux disease) Family [...] Safety Answer Date Record ed Physical Abuse Unrecognized value 09/14/2024 Verbal Abuse Unrecognized value 09/14/2024 Sex and Gender Information Value Date [...] Maintenance Results * COLONOSCOPY Anesthesia - MAC; MEMORIAL [...] pathology results. Narrative 09/14/2024 9:07 AM EST [facility] GI Patient Name: Yassine Sharpe [...] not prolapse). Procedure Code(s): --- Professional --- 01286, Colonoscopy, flexible; with removal of tumor(s), polyp(s), [...] in this report are preliminary and upon turkey roll maker review may be revised to meet current compliance requirements. Yanni Qiu MD 09/14/2024 9:07:18 AM This report has been signed electronically.Yanni Qiu MD Number of Addenda: 0 Note Initiated On: 09/14/2024 8:30 AM Scope In: Scope Out: Endoscopy Department at [facility] - [address] [place] [phone] Procedure Note Yanni Qiu MD - 09/14/2024 [facility] GI Patient Name: Yassine Sharpe [...] not prolapse). Procedure Code(s): --- Professional --- 82451, Colonoscopy, flexible; with removal of tumor(s), polyp(s), [...] in this report are preliminary and upon turkey roll maker reviewmay be revised to meet current compliance requirements. Yanni Qiu MD 09/14/2024 9:07:18 AM This report has been signed electronically.Yanni Qiu MD Number of Addenda: 0 Note Initiated On: 09/14/2024 8:30 AM Scope In: Scope Out: Endoscopy Department at [facility] - [address] [place] [phone] IMPRESSION: - The examined portion of the [...] to Health Maintenance Insurance MEDICARE [facility] Care Teams Compliance Counsel Relationship Specialty Start Date End Date Tj Torres MD [address] [place] [address] PCP - General Internal Medicine 09/12/24
--- OUTSIDE RECORDS SUMMARY | 2025-09-13 18:51 | XMS_ITS | Clinical Summary ---
Author Organization [facility] Address [address] [place] [address] Care Team Providers Care Facilities Planner Name Role Phone Sathya Herzog MD Primary Care Provider [phone] Allergies No known active allergies Medications Medication [...] age to complete this topic Care Teams Facilities Planner Relationship Specialty Start Date End Date Sathya Herzog MD [address] [address] PCP - General Internal Medicine 11/29/19
--- OUTSIDE RECORDS SUMMARY | 2025-09-13 18:51 | XMS_ITS | Encounter Summary ---
Author Organization [facility] Address [address] [facility] [address] [place] [address] Phone Care Team Providers Care Boat Rigger Name Role Phone Sathya Herzog MD Primary Care Provider [phone] Encounter Details Date Type Department Care Team (Late st Contact Info) Description 06/05/2020 Procedure Pass [facility] @ [address] [id number] Social History Tobacco Use Types Packs/Day Years [...] on filedocumented in this encounter Care Teams Boat Rigger Relationship Specialty Start Date End Date Sathya Herzog MD [address] [address] PCP - General Internal Medicine 01/24/20 documented as of this encounter Additional Source Comments The information contained in this document represents components of the legal health record. It is not the complete legal health record.[facility]
== END 2025-09-13 10:43 | disposition home or self-care (01) ==
LOC: HO.HPS 10:01
PROVIDERS: PCP Internal Medicine; Visit Provider Hospitalist
DX: J41.0 Simple chronic bronchitis (principal); R06.09 Other forms of dyspnea; J45.40 Moderate persistent asthma, uncomplicated; R00.0 Tachycardia, unspecified; G47.33 Obstructive sleep apnea (adult) (pediatric)
CPT/HCPCS: 99214; G2211

== ENCOUNTER → 2025-09-13 10:00 | Outpatient (BNVA) | payer MEDICARE, OTHER, SELFPAY | PROVIDERS: PCP Internal Medicine; Visit Provider Hospitalist | DX: J45.40 Moderate persistent asthma, uncomplicated (principal); R06.09 Other forms of dyspnea; J41.0 Simple chronic bronchitis; G47.33 Obstructive sleep apnea (adult) (pediatric); R00.0 Tachycardia, unspecified | CPT/HCPCS: 99212 ==

== ENCOUNTER 2025-09-25 15:32 | Outpatient (AMB) | payer MEDICARE, OTHER, SELFPAY ==
--- NOTE | 2025-09-25 15:46 | MHC.OFFVIS ---
Vital Signs 09/25/25 15:49 Height 6 ft Weight 220 lb 14.451 oz BMI 30.0 BP 120/70 Blood Pressure Location Lt brachial Position Sitting Pulse 76 Pulse Source Monitor Intake Visit Reasons: 3 mth f/up Intake Note: 3 mth f/up General Practitioner Required: No Accompanied by: Spouse Allergies No Known Allergies Allergy (Verified 09/13/25 10:10) Medication List - Last Reconciled 09/25/25 by Sj Roberts MD albuterol sulfate 2.5 mg (3 mL) inhalation QID 90 days amiodarone 200 mg orally Take 2 tablets twice a day x 14 days then 1 tablet daily.; budesonide 0.5 mg (2 mL) inhalation BID 30 days celecoxib 200 mg PO DAILY fluticasone propion-salmeterol 500-50 mcg/dose (Wixela Inhub) 1 inh inhalation BID 90 days melatonin 3 mg PO BEDTIME PRN montelukast 10 mg PO DAILY 90 days roflumilast (Daliresp) 250 mcg PO DAILY 30 days rosuvastatin 20 mg PO DAILY tiotropium bromide 2.5 mcg/actuation (Spiriva Respimat) 2 puffs inhalation DAILY 90 days valsartan 80 mg PO DAILY HPI Comments Details: [age] year gentleman who is here for dyspnea on exertion ongoing for few years with worsening in the last 6 months. He also has irregular heartbeat which has been ongoing for many years. In 2022 underwent dobutamine stress echocardiogram at [facility] [place]. The documentation showed that he had premature atrial complexes before the the test was performed and had mild cardiomyopathy based on the testing. No significant ischemia was noted with the dobutamine stress echocardiogram. He had echocardiography performed at [facility] in February 2025 which showed EF of 40-45%. No significant wall motion abnormality was noted. Mild dilation of ascending aorta 3.7 cm was noted. He is saying that he has been getting dyspnea on exertion for a few years but in the last 6 months things have worsened significantly. Now he gets out of breath with minimal activity. He is denying any chest discomfort. He has nighttime snoring and also gets some orthopnea like episodes off and on. No peripheral edema. A 09/25/2025: He is here for follow-up. He is saying that he is significantly short of breath. He also is complaining of some orthopnea and PND. He has COPD in his medications has been changed recently. Does not appear to be significantly volume overloaded. He is on amiodarone and EKGs to in showing PVCs. COUNTS INCLUDE 234 BEDS AT [facility] Medical History Tachyarrhythmia Asthma Dyspnea COPD (chronic obstructive pulmonary disease) Surgical History History of cardiac cath Family History Father Heart attack Paternal Grandfather Heart attack Social History Patient Tobacco Use Status: Never used Tobacco Review of Systems Const Denies chills, Denies fatigue, Denies fever(s), Denies frequent falls, Denies weakness, Denies weight gain and Denies weight loss ENT Denies dizziness Card Denies chest pain, Denies leg edema, Denies lightheadedness, Denies palpitations, Denies dyspnea and Denies dyspnea on exertion Resp Denies cough, Denies dyspnea and Denies dyspnea on exertion GI Denies hematochezia Musc Denies abnormal gait, Denies muscle weakness, Denies numbness, Denies radiating pain into limb and Denies tingling Neuro Denies abnormal gait, Denies dizziness, Denies frequent falls, Denies numbness, Denies tingling and Denies weakness Endo Denies fatigue and Denies palpitations Physical Exam Vital Signs: Last Vital Signs Pulse 76 09/25/25 15:49 BP 120/70 09/25/25 15:49 BMI result Body Mass Index 30.0 GENERAL APPEARANCE: in no acute distress, pleasant. NECK: no carotid bruit, no jugular venous distention. SKIN: no suspicious lesions, warm and dry. HEART: no murmurs, regular rate and rhythm. LUNGS: clear to auscultation bilaterally. ABDOMEN: soft, nontender. EXTREMITIES: no edema. PERIPHERAL PULSES: equal. NEUROLOGIC: No gross deficits, AAO X 3 Office Procedures EKG Details: Sinus rhythm 76 beats per minute, frequent premature ventricular complexes with 2 different morphologies. Low-voltage QRS, anterolateral infarct, QTC 441 milliseconds. [id number], Complete Assessment & Plan Assessment & Plan (1) PVC (premature ventricular contraction): Code(s): I49.3 - Ventricular premature depolarization Category: Medical (2) Cardiomyopathy: Code(s): I42.9 - Cardiomyopathy, unspecified Category: Medical (3) Dyspnea: Code(s): R06.00 - Dyspnea, unspecified Category: Medical Qualifiers: Dyspnea type: dyspnea on exertion Qualified Code(s): R06.09 - Other forms of dyspnea Plan [age] year gentleman who is here for follow-up. He was seen previously for dyspnea and underwent cardiac catheterization where no significant coronary disease was noted. He has filling pressure at transfer normal. He had significant PVCs and after some discussion he was started on amiodarone. He continues to be on 200 mg daily of amiodarone at this stage. He had significant PVC burden which is the likely reason for his jomf-bj-yuydopay LV dysfunction. With amiodarone the hope is that his PVCs we will be suppressed although his EKGs did not showing frequent premature ventricular complexes of different morphologies. Starting him on low-dose diuretics receive his dyspnea improves. Clinically does not appear significantly volume overloaded but I think we can heel trial of 2 weeks to see if his breathing changes at all. I have we will do repeat Holter monitoring on next visit. He will continue same medications otherwise. Thank you for allowing me to participate in the care of your patient. Please feel free to contact me if you have any questions. Medications: New furosemide (Lasix) 20 mg PO DAILY 30 tabs 2RF R06.09 - Other forms of dyspnea Coding Level of Care Code Est Pt Level 4 (21251) Diagnoses PVC (premature ventricular contraction) I49.3 Cardiomyopathy I42.9 Dyspnea on exertion R06.09 Dyspnea type: dyspnea on exertion CPT Codes EKG - CPT: 83567-[id number], Complete ([id number])
[2025-09-25 15:49] VITALS: BP 120/70; PULSE 76
--- OUTSIDE RECORDS SUMMARY | 2025-09-25 18:29 | XMS_ITS | Clinical Summary ---
Author Organization [facility] Address [address] [place] [address] Phone Care Team Providers Care Jewelry Engraver Name Role Phone Tj Torres MD Primary Care Provider [phone] Allergies No known active allergies Medications omeprazole [...] DX:Asthma COPD (chronic obstructive pu lmonary disease) ([facility] V24, [facility] V28) DX:COPD (chronic o bstructive pulmonary disease) ([facility]) Hypertension DX:Hypertension Drug ingestion DX:Drug ingestio n Cancer ([facility] V24, [facility] V28) DX:Cancer ([facility]);COMMENT:bladder Depression GERD (gastroesophageal reflux disease) Family History [...] series) 1964 Cholesterol Screening (Lipid Panel) 08/10/2024 Falls Risk Assessment 08/10/2024 Hepatitis C Screening 08/10/2024 Hypertension/CHF/CAD Annual BMP Blood Test 08/10/2024 Medicare Annual Wellness Visit 08/10/2024 Social Influencers of Health Screening 08/10/2024 Depression Screening 10/26/2024 COVID-19 Vaccine ( season) 2025 07/18/2024, 07/31/2023, 10/02/2022, Additional history exists Influenza Vaccine (#1) 2025 , 07/17/2023, 07/09/2022, Additional history exists DTaP,Tdap,and Td Vaccines (4 - Td or [...] Health Maintenance Results * COLONOSCOPY Anesthesia - [facility] ENDOSCOPY (09/14/2024 9:05 AM EST) [...] pathology results. Narrative 09/14/2024 9:07 AM EST [facility] GI Patient Name: Yassine Sharpe [...] not prolapse). Procedure Code(s): --- Professional --- 08465, Colonoscopy, flexible; with removal of tumor(s), polyp(s), or other lesion(s) by snare technique Diagnosis Code(s): --- Professional --- Z86.010, Personal history of colonic polyps D12.2, Benign neoplasm of ascending colon D12.3, Benign neoplasm of transverse colon (hepatic flexure or splenic flexure) D12.4, Benign neoplasm of descending colon CPT copyright 2020 [employer]. All rights reserved. The codes documented in this report are preliminary and upon drawing supervisor review may be revised to meet current compliance requirements. Yanni Qiu MD 09/14/2024 9:07:18 AM This report has been signed electronically.Yanni Qiu MD Number of Addenda: 0 Note Initiated On: 09/14/2024 8:30 AM Scope In: Scope Out: Endoscopy Department at [facility] - [address] [place] [phone] Procedure Note Yanni Qiu MD - 09/14/2024 [facility] GI Patient Name: Yassine Sharpe [...] not prolapse). Procedure Code(s): --- Professional --- 02821, Colonoscopy, flexible; with removal of tumor(s), polyp(s), or other lesion(s) by snare technique Diagnosis Code(s): --- Professional --- Z86.010, Personal history of colonic polyps D12.2, Benign neoplasm of ascending colon D12.3, Benign neoplasm of transverse colon (hepatic flexure or splenic flexure) D12.4, Benign neoplasm of descending colon CPT copyright 2020 [employer]. All rights reserved. The codes documented in this report are preliminary and upon drawing supervisor reviewmay be revised to meet current compliance requirements. aYnni Qiu MD 09/14/2024 9:07:18 AM This report has been signed electronically.Yanni Qiu MD Number of Addenda: 0 Note Initiated On: 09/14/2024 8:30 AM Scope In: Scope Out: Endoscopy Department at [facility] - [address] [place] [phone] IMPRESSION: - The examined portion of the [...] Recently Relevant to Health Maintenance Insurance MEDICARE [facility] Care Teams Jewelry Engraver Relationship Specialty Start Date End Date Tj Torres MD [facility] [place] [address] PCP - General Internal Medicine 09/12/24
--- OUTSIDE RECORDS SUMMARY | 2025-09-25 18:29 | XMS_ITS | Clinical Summary ---
Author Organization [facility] Address [address] [address] Phone Care Team Providers Care Block Mason Name Role Phone Sathya Herzog MD Primary Care Provider [phone] Allergies No known active allergies Medications valsartan [...] this topic Medical Devices Implanted Type Area Armorer Technician Device Identifier Shelf Expiration Date Model / Serial / Lot [place] Suture 19.1x4.75mm Arthroscopy Swivelock Biocomposite Vented Closed Eyelet Pk/5ea - [id number] Implanted:Qty: 1 on 06/05/2020 by Christen Wills MD at [facility] Right: Shoulder ARTHREX 03/25/2024 AR-2324BC C / / [place] Suture 19.1x4.75mm Arthroscopy Swivelock Biocomposite Vented Closed Eyelet Pk/5ea - [id number] Implanted:Qty: 1 on 06/05/2020 by Christen Wills MD at [facility] Right: Shoulder ARTHREX 03/25/2024 AR-2324BC C / / [id number] [place] Suture 19.1x4.75mm Vented Closed Eyelet Fibertape Loop Swivelock Biocomposite - [id number] Implanted:Qty: 1 on 06/05/2020 by Christen Wills MD at [facility] STANDARD Right: Shoulder ARTHREX 02/23/[address] / / [id number] [place] Suture 4.75x19.1mm Arthroscopy Swivelock Biocomposite Vented Closed Eyelet Tigertape Loop - [id number] Implanted:Qty: 1 on 06/05/2020 by Christen Wills MD at [facility] STANDARD Right: Shoulder ARTHREX 09/24/2023 AR-2324BC CTT / / [id number] Insurance MEDICARE PART A & B [facility] MEDICARE SUPPLEMENT Care Teams Block Mason Relationship Specialty Start Date End Date Sathya Herzog MD [address] [address] PCP - General Internal Medicine 01/24/20 Additional Source Comments The information contained in this document represents components of the legal health record. It is not the complete legal health record.[facility]
--- OUTSIDE RECORDS SUMMARY | 2025-09-25 18:29 | XMS_ITS | Encounter Summary ---
Author Organization [facility] Address [address] [employer] [facility] [address] [place] [address] Phone Care Team Providers Care Wet Finisher Name Role Phone Sathya Herzog MD Primary Care Provider [phone] Encounter Details Date Type Department Care Team (Late st Contact Info) Description 06/05/2020 Procedure Pass [facility] @ [address] [phone] Social History Tobacco Use Types Packs/Day Years [...] on filedocumented in this encounter Care Teams Wet Finisher Relationship Specialty Start Date End Date Sathya Herzog MD [address] [address] PCP - General Internal Medicine 01/24/20 documented as of this encounter Additional Source Comments The information contained in this document represents components of the legal health record. It is not the complete legal health record.[facility]
--- OUTSIDE RECORDS SUMMARY | 2025-09-25 18:29 | XMS_ITS | Clinical Summary ---
Author Organization [facility] Address [address] [place] [address] Care Team Providers Care Cigar Tobacco Rehandler Name Role Phone Sathya Herzog MD Primary Care Provider [phone] Allergies No known active allergies Medications Medication [...] age to complete this topic Care Teams Cigar Tobacco Rehandler Relationship Specialty Start Date End Date Sathya Herzog MD [address] [address] PCP - General Internal Medicine 11/29/19
== END 2025-09-25 16:27 | disposition home or self-care (01) ==
LOC: HO.HCS 15:33
PROVIDERS: PCP Internal Medicine; Visit Provider Internal Medicine Cardiovascular Disease
DX: I49.3 Ventricular premature depolarization (principal); I42.9 Cardiomyopathy, unspecified; R06.09 Other forms of dyspnea
CPT/HCPCS: 93010; 99214

== ENCOUNTER → 2025-09-25 15:32 | Outpatient (BNVA) | payer MEDICARE, OTHER, SELFPAY | PROVIDERS: PCP Internal Medicine; Visit Provider Internal Medicine Cardiovascular Disease | DX: I49.3 Ventricular premature depolarization (principal); I42.9 Cardiomyopathy, unspecified; R06.09 Other forms of dyspnea | CPT/HCPCS: 93005; 99212 ==